=== PATIENT | female | born 1970 | race Caucasian/White ===

== ENCOUNTER 2021-08-21 15:59 | Outpatient (CLI) | payer BC, SELFPAY ==
--- NOTE | ~2021-08-21 | XR_ITS ---
EXAMINATION: XR abdomen/kub 1V DATE: 08/21/2021 16:18 INDICATION: Calculus of ureter. TECHNIQUE: A supine view of the abdomen on 2 radiographs was obtained. COMPARISON: CT abdomen and pelvis 01/26/2019 FINDINGS: There are no dilated loops of bowel. There is a 2.5 cm stone in right kidney. There is a ga llstone in the gallbladder. IMPRESSION: 1. Right kidney stone. 2. Cholelithiasis. Reviewed, dictated and finalized at location A.
== END 2021-08-21 16:00 | disposition home or self-care (01) ==
LOC: ANHOBOP 16:04 → ANHIMG 16:08
PROVIDERS: PCP Internal Medicine; Visit Provider Urology
DX: N20.0 Calculus of kidney (principal); K80.20 Calculus of gallbladder without cholecystitis without obstruction
CPT/HCPCS: 74018

== ENCOUNTER 2021-08-22 15:37 | Outpatient (CLI) | payer BC, SELFPAY ==
--- NOTE | ~2021-08-22 | CT_ITS ---
EXAMINATION: CT abdomen pelvis wo con EXAM DATE: 08/22/2021 15:58 INDICATION: Kidney stone. TECHNIQUE: Spiral CT of the abdomen and pelvis was performed without contrast. Axial, coronal and sag ittal images were reviewed. The dose-length product (DLP) for this examination was 1305.71 mGy-cm. The exposure was tailored according to patient size (auto mA exposure control), and iterative reconst ruction (ASIR) was used as additional dose reduction technique. Comparison is made to prior examinati on from 01/26/2019. FINDINGS: There is a punctate 2 mm stone in the right ureterovesicular junction with mild hydroureter onephrosis. There are multiple much larger right calyceal stones with moderate amount of perinephric fat stranding, inflammation. No left nephrolithiasis. The uterus is not identified and has likely bee n surgically resected. The bladder is unremarkable. The liver, spleen, adrenal glands and pancreas are unremarkable. Approximately 1 cm calcified gallstone. There is no retroperitoneal or pelvic lym phadenopathy. The appendix is normal. There is mild scattered colonic diverticulosis. There is no adjacent inflamm atory change to suggest diverticulitis. The stomach and small bowel are unremarkable. There is expec shasha amount of colonic stool. No free intraperitoneal gas. The heart is normal in size. There are no pericardial or pleural effusions. The lung bases are unremarkable. There are no osteoblastic or osteolytic lesions identified. IMPRESSION: 1. Right UVJ 2 mm stone, mild hydroureteronephrosis. 2. Large right nephrolithiasis with moderate peripelvic fat stranding. 3. Mild colonic diverticulosis. 4. Cholelithiasis. Reviewed, dictated and finalized at location A.
== END 2021-08-22 15:38 | disposition home or self-care (01) ==
PROVIDERS: PCP Internal Medicine; Visit Provider Urology
DX: N20.0 Calculus of kidney (principal); N13.30 Unspecified hydronephrosis; K57.90 Diverticulosis of intestine, part unspecified, without perforation or abscess without bleeding; K80.20 Calculus of gallbladder without cholecystitis without obstruction
CPT/HCPCS: 74176

== ENCOUNTER 2021-08-25 07:57 | Outpatient (CLI) | payer BC, SELFPAY ==
[2021-08-25 08:34] LABS: Anion Gap 9 mmol/L (8-16); Blood Urea Nitrogen 14 mg/dL (7-17); Calcium 8.7 mg/dL (8.4-10.2); Carbon Dioxide 23 mmol/L (22-30); Chloride 106 mmol/L (98-107); Estimated Glomerular Filt Rate > 60; Glucose 262 mg/dL (65-110); Potassium 4.3 mmol/L (3.4-5.0); Sodium 138 mmol/L (137-145)
[2021-08-25 08:37] LABS: Prothrombin Time 13.1 Seconds (11.1-14.7)
[2021-08-25 08:38] LABS: Partial Thromboplastin Time 27.4 SECONDS (22.3-36.8)
== END 2021-08-25 07:58 | disposition home or self-care (01) ==
LOC: ANHSURGERY 08:00
PROVIDERS: Anesthesiology; PCP Internal Medicine; Visit Provider Urology
DX: Z01.812 Encounter for preprocedural laboratory examination (principal); N20.0 Calculus of kidney; E11.9 Type 2 diabetes mellitus without complications; Z51.81 Encounter for therapeutic drug level monitoring; Z79.899 Other long term (current) drug therapy
CPT/HCPCS: 36415; 80048; 85610; 85730; 87077; 87086; 87088

== ENCOUNTER 2021-09-01 04:23 | Day surgery (SDC) | payer BC, SELFPAY ==
[2021-08-24 14:30] VITALS: BMI 43.0
--- NOTE | 2021-08-24 14:59 | PC.NURSE ---
Report to the Outpatient Waiting Room, entrance under the green pavilion located off [facility], at time 7:30 on date 09/01/21. OR Time: 9:30. - You and your visitor will be asked a series of questions to screen for COVID 19 for your protection. - A mask is required within the hospital. One visitor will be allowed to accompany the patient into the hospital. Patients visitor will be instructed to remain with patient at all times or leave the building. We will allow the visitor to come back to the postoperative area when patient is ready. Preoperative COVID Testing Requirements: No COVID Test needed if: (proof is required; if not received patient will have Rapid Test prior to entry) - Patient has received COVID Vaccine at least 14 days prior to procedure date or - Patient has positive COVID test result within last 90 days of surgery date. COVID Test needed if above criteria is not met Patients may have clear liquids (water, carbonated beverages, clear teas, apple juice) until 3 hours prior to surgery (6:30) with a maximum of 20 ounces. - No food from midnight until time of surgery Take the following medications with a SIP of water the morning of surgery: LEVOTHYROXINE, METOPROLOL, ESCITALOPRAM Medications to discontinue per physician: ASPIRIN Date to take last dose: PER DR. CEJA Please no make-up, nail maldivian, hairspray, perfume, deodorant, or body powder the day of surgery. No jewelry (including any body piercings) or valuables the day of surgery, leave them at home. Please take a shower or bath the night before, or the morning of, surgery with an antibacterial soap. Wear comfortable, loose fitting clothing. - Jewelry must be removed prior to entering the operating room. Rings and piercings that are not removed may be cut off. - The hospital will not accept responsibility for valuables. - Please leave all valuables, including medications, at home the day of surgery. If you are going home after surgery, a licensed tram driver must drive you home. - NO public transportation without another adult. - We recommend that an adult stay with you for 24 hours following discharge. - We also recommend that you do not drive, make important decision, drink alcoholic beverages, or take any drugs that were not prescribed by your health care provider for at least 24 hours after your discharge time. Follow any additional instructions given to you from your surgeon. Telephone instructions given to ERIKA ADAMS and asked if any additional questions and then verbalized understanding. Patient advised to call surgeon office or pre surgery nurse liaison [phone] if any additional questions.
[2021-09-01] VITALS (8 sets, daily range): BP systolic 112–132; BP diastolic 65–83; PULSE 66–81; RESP 14–20; TEMP 36.4–36.9; O2SAT 94–99
--- NOTE | ~2021-09-01 | XR_ITS ---
EXAMINATION: XR abdomen/kub 1V INDICATION: Calculus of the kidney TECHNIQUE: Supine views of the abdomen were obtained on 2 radiographs. COMPARISON: CT, 08/22/2021 FINDINGS: A gallstone is noted in the right upper quadrant. There is a 2.2 cm stone of the right kidn ey upper pole. A 9 mm stone projects in the right renal pelvis. No additional stones measuring 10 mm and 7 mm project in the left kidney lower pole. The bowel gas pattern is normal. 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 IMPRESSION: 1. Right nephrolithiasis and likely stone in the right renal pelvis. Reviewed, dictated and finalized at location A.
--- NOTE | 2021-09-01 06:10 | ECG_ITS ---
Measurements Intervals [place] Rate: 72 P: 55 AK: 195 QRS: -12 QRSD: 92 T: 1 QT: 403 QTc: 442 Interpretive Statements SINUS RHYTHM NONSPECIFIC T-WAVE ABNORMALITY ABNORMAL ECG COMPARED TO ECG 01/28/2019 08:44:17 NO SIGNIFICANT CHANGES Electronically Signed On 09-01-2021 15:47:45 CDT by Venkat Finn M.D.
--- NOTE | 2021-09-01 06:25 | WPDHPUPDATE1 ---
History and Physical Update Update Date/Time: 09/01/21 06:25 History and Physical has been reviewed, including an updated exam of the patient. There are NO changes in the patient's condition. Risks, benefits, and alternatives have been discussed and questions answered. Patient agrees to proceed with procedure.
--- NOTE | 2021-09-01 06:56 | WPDANESEPPF ---
Anes - Initial Pre Proc Eval Procedure: Operation Date: 09/01/21 09:30 Proposed Procedures p Right Extracorporeal Shock Wave Lithotripsy - Kingsley Dixon MD s Cystoscopy, Right Ureteroscopy with Right Stone Extraction, Right Stent Placement - Kingsley Dixon MD Date/Time: 09/01/21 06:56 Surgeon: Kingsley Dixon MD Pre Op Diagnosis: Rt Renal and Ureteral Stones Patient Data Age: 51 Gender: F Height: 1.7 m Weight: 124.74 kg Allergies Allergy/AdvReac Type Severity Reaction Status Date / Time No Known Allergies Allergy Verified 09/01/21 08:04 Home Medications Medication Instructions Recorded Confirmed Type atorvastatin 40 mg PO DAILY 08/24/21 08/24/21 History escitalopram oxalate 20 mg PO DAILY 08/24/21 08/24/21 History glipizide 10 mg PO BID 08/24/21 08/24/21 History hydrocodone-acetaminophen 1 tablet PO Q6H PRN 08/24/21 08/24/21 History isosorbide mononitrate 30 mg PO DAILY 08/24/21 08/24/21 History levothyroxine [Euthyrox] 300 mcg PO DAILY 08/24/21 08/24/21 History lisinopril 10 mg PO DAILY 08/24/21 08/24/21 History metoprolol succinate 25 mg PO DAILY 08/24/21 08/24/21 History ondansetron 8 mg TRANSLINGUAL Q6H PRN 08/24/21 08/24/21 History semaglutide [Ozempic] 0.5 mg SUBCUT WEEKLY 08/24/21 08/24/21 History sulfamethoxazole-trimethoprim 1 tablet PO BID 09/01/21 09/01/21 History Patient hx anesthesia problems: none Family hx anesthesia problems: none Results Review: All pre-operative results and documents have been reviewed as part of the pre-operative evaluation. [facility] Past Medical History Medical History (Updated 09/01/21 @ 06:57 by Husam Acevedo DO) CAD (coronary artery disease) Depression Diabetes type 2, controlled Hyperlipidemia Hypertension Hypothyroidism Surgical History Surgical History (Updated 09/01/21 @ 06:57 by Husam Acevedo DO) History of coronary artery stent placement History of hysterectomy History of tonsillectomy Social History Social History Smoking packs per day: 1 Smoking cigarettes per day: 20.0 Years smoked: 10 Smoking pack-years: 10.00 Smoking status: Former smoker Tobacco type: cigarettes Smoking end date: 05/20/95 Alcohol intake: never Substance use: never Substance use type: does not use Living arrangements: with family Spiritual care concerns: No Anes - Eval Final PreProcedure Day of Procedure 09/01/21 06:56 Patient weight: morbidly obese Heart: regular rate and rhythm Lungs: clear to auscultation and normal air movement Airway: Mallampati scale class II Neurological: alert and oriented Last oral intake: >/= 8 hours ASA classification: III Emergent: no Anesthetic plan: proceed Anesthesia type and monitoring: general LMA and standard monitoring Results Review: All pre-operative results and documents have been reviewed as part of the pre-operative evaluation. Informed Consent: The patient's anesthetic plan and its attendant risks and benefits were discussed with the patient/family/POA. Questions were solicited and answers provided to the satisfaction of the patient/family/POA.
[2021-09-01] MEDS: LACTATED RINGERS 1,000 ML 30 ML IV CONT ×2 (08:15→11:40)
[2021-09-01 08:21] LABS: Glucose Point of Care 197 mg/dl (65-105)
[2021-09-01] MEDS: ceFAZolin 3 GM/D5W 100 ML 100 ML IVPB (09:23)
[2021-09-01] MEDS: LIDOCAINE HCL 2% GEL UROJET 10 ML PKG MUCOUS MEM (09:54)
--- NOTE | 2021-09-01 09:58 | W.PM.PROC2 ---
Procedure Note - Detailed Date of Procedure 09/01/21 Pre-op Diagnosis Rt Renal and Ureteral Stones Post-op Diagnosis Same Procedure Performed Cystoscopy, right retrograde pyelography, right ureteroscopy with stone extraction and right ureteral stent placement. The right ESWL Surgeon Kingsley Dixon MD Anesthesia General Description of Procedure The patient was brought to the operative suite where she is prepped and draped in a routine sterile fashion while in the dorsal lithotomy position after the uneventful induction of a general LMA anesthetic. A 19F rigid cystoscope was placed in the bladder. The patient had no evidence of urethral stricture or bladder neck contracture. The bladder mucosa was endoscopically normal without hyperemia or neoplasm. There was a single, orthotopic ureteral orifice bilaterally. A 0.035 glidewire was advanced into the right renal pelvis under fluoroscopy. The distal ureter was dilated with an 8F/10F ureteral dilator. Ureteroscopy was undertaken with a short, tapered, semi-rigid ureteroscope and a small, 2-3mm right distal ureteral stone was extracted with ease using a 1.9F Escape disposable stone basket. I then did a right retrograde pyelogram to ensure proper positioning of a 4.8 F variable length ureteral stent with proximal coil in the renal pelvis and distal coil in the bladder. She was then repositioned in the supine position on the Dornier lithotripsy table. The focal point of the lithotripter was placed at a 2.5cm upper pole renal calculus. A total of 2500 shocks were delivered at a power setting of 4. There appeared to be good fragmentation of the stone. The patient tolerated the procedure well and was taken to the recovery room in good condition. Drains Yes Packing No Pathology Yes Complications No immediate complications Condition Stable Disposition PACU
[2021-09-01 10:48] LABS: Glucose Point of Care 186 mg/dl (65-105)
[2021-09-01] MEDS: ONDANSETRON INJ 4 MG/2 ML VIAL IV PUSH (11:25)
[2021-09-01] MEDS: SCOPOLAMINE 1.5 MG PATCH TRANSDERM (11:47)
== END 2021-09-01 12:22 | disposition home or self-care (01) ==
PROVIDERS: PCP Internal Medicine; Visit Provider Urology
PROC: (CPT 50590; principal; 2021-09-01 09:30)
PROC: (CPT 52352; 2021-09-01 09:30)
DX: N20.2 Calculus of kidney with calculus of ureter (principal); E03.9 Hypothyroidism, unspecified; I25.10 Atherosclerotic heart disease of native coronary artery without angina pectoris; F32.9 Major depressive disorder, single episode, unspecified; E78.5 Hyperlipidemia, unspecified; I10 Essential (primary) hypertension; Z87.891 Personal history of nicotine dependence; E66.01 Morbid (severe) obesity due to excess calories; Z68.41 Body mass index [BMI] 40.0-44.9, adult; R94.31 Abnormal electrocardiogram [ECG] [EKG]; R10.11 Right upper quadrant pain
CPT/HCPCS: 50590; 52352; 52332; 36415; 74018; 80048; 82365; 82948; 85610; 85730; 87077; 87086; 87088; 88300; 93005; A9270; C1769; C2617; J0690; J2250; J2370; J2405; J2704; J3010; J7120; Q9966

== ENCOUNTER 2021-09-19 08:21 | Outpatient (CLI) | payer BC, SELFPAY ==
--- NOTE | ~2021-09-19 | XR_ITS ---
EXAMINATION: XR abdomen/kub 1V INDICATION: Calculus of the kidney TECHNIQUE: Supine views of the abdomen were obtained on 2 radiographs. COMPARISON: 09/01/2021 FINDINGS: A right internal ureteral stent has been placed in expected position. There appear to be mu ltiple stone fragments in the mid and lower right kidney resulting from interval lithotripsy on the r ight. No definite stone fragments are identified along the right-sided stent. A gallstone is noted in the right upper quadrant. The bowel gas pattern is normal. IMPRESSION: 1. Right internal ureteral stent placement and interval lithotripsy with multiple stone fragments pro jecting in the right mid and lower kidney. Reviewed, dictated and finalized at location A. IMPRESSION: 1. Right internal ureteral stent placement and interval lithotripsy with multip le stone fragments projecting in the right mid and lower kidney.
== END 2021-09-19 08:22 | disposition home or self-care (01) ==
PROVIDERS: PCP Internal Medicine; Visit Provider Urology
DX: N20.0 Calculus of kidney (principal); K80.80 Other cholelithiasis without obstruction
CPT/HCPCS: 74018

== ENCOUNTER 2021-09-22 01:22 | Day surgery (SDC) | payer BC, SELFPAY ==
[2021-09-20 17:35] VITALS: BMI 43.0
--- NOTE | 2021-09-21 09:49 | PC.NURSE ---
Report to the Outpatient Waiting Room, entrance under the green pavilion located off [facility], at time ____1245___ on date ___09/22/21____. OR Time: __1445 . - You and your visitor will be asked a series of questions to screen for COVID 19 for your protection. - Only one visitor is allowed at this time. - The patient visitor is requested to leave or wait in car when not with patient. - A mask is required within the hospital. Patients may have clear liquids (water, carbonated beverages, clear teas, apple juice) until 3 hours prior to surgery with a maximum of 20 ounces. - No food from midnight until time of surgery - Infants may have breast milk until 4 hours before surgery, infant formula 6 hours prior to surgery. - Children will be allowed to drink immediately following surgery. If applicable, please bring a bottle or sippy cup to assist with drinking. Juice, water, soda, and popsicles are readily available. For infants on formula, please bring formula the day of surgery. Pacifiers are allowed. Take the following medications with a SIP of water the morning of surgery: _ESCITALOPRAM, ISOSORBIDE, LEVOTHYROXINE, METOPROLOL _ Medications to discontinue per physician N/A Date to take last dose Please no make-up, nail spanish, hairspray, perfume, deodorant, or body powder the day of surgery. No jewelry (including any body piercings) or valuables the day of surgery, leave them at home. Please take a shower or bath the night before, or the morning of, surgery with an antibacterial soap. Wear comfortable, loose fitting clothing. Children are encouraged to wear pajamas. - Jewelry must be removed prior to entering the operating room. Rings and piercings that are not removed may be cut off. - The hospital will not accept responsibility for valuables. - Please leave all valuables, including medications, at home the day of surgery. If you are going home after surgery, a licensed cart driver must drive you home. - NO public transportation without another adult. - We recommend that an adult stay with you for 24 hours following discharge. - We also recommend that you do not drive, make important decision, drink alcoholic beverages, or take any drugs that were not prescribed by your health care provider for at least 24 hours after your discharge time. For Pediatric surgeries, we recommend two adults accompany the child home (only one inside the building at this time). Follow any additional instructions given to you from your surgeon. If you or anyone in your household have experienced Covid symptoms in the past week, please notify your surgeon or the nurse liaison at the phone number below for possible testing. Telephone instructions given to ___PT and asked if any additional questions and then verbalized understanding. Patient advised to call surgeon office or pre surgery nurse liaison [phone] if any additional questions.
--- NOTE | 2021-09-21 14:14 | WPDANESEPP ---
Anes - Eval Pre Procedure Procedure: Operation Date: 09/22/21 14:45 Proposed Procedures p Right Extracorporeal Shock Wave Lithotripsy - Kingsley Dixon MD Date/Time: 09/21/21 14:14 Pre Op Diagnosis: right kidney stone Patient Data Age: 51 Gender: F Height: 1.7 m Weight: 124.74 kg Allergies Allergy/AdvReac Type Severity Reaction Status Date / Time diphenhydramine AdvReac Other Verified 09/20/21 17:34 [From [facility]] Home Medications Medication Instructions Recorded Confirmed Type Ozempic 0.5 mg SUBCUT WEEKLY 08/24/21 09/21/21 History atorvastatin 40 mg PO DAILY 08/24/21 09/21/21 History escitalopram oxalate 20 mg PO DAILY 08/24/21 09/21/21 History glipizide 10 mg PO BID 08/24/21 09/21/21 History isosorbide mononitrate 30 mg PO DAILY 08/24/21 09/21/21 History levothyroxine [Euthyrox] 300 mcg PO DAILY 08/24/21 09/21/21 History lisinopril 10 mg PO DAILY 08/24/21 09/21/21 History metoprolol succinate 25 mg PO DAILY 08/24/21 09/21/21 History hyoscyamine sulfate 0.125 mg PO Q6H PRN #20 tablet 09/01/21 09/21/21 Rx nitrofurantoin 1 cap BID 09/21/21 09/21/21 History Patient hx anesthesia problems: none Family hx anesthesia problems: none Results Review: All pre-operative results and documents have been reviewed as part of the pre-operative evaluation. [facility] Past Medical History Medical History (Updated 09/01/21 @ 10:04 by Kingsley Dixon MD) CAD (coronary artery disease) Depression Diabetes type 2, controlled Hyperlipidemia Hypertension Hypothyroidism Surgical History Surgical History (Updated 09/01/21 @ 06:57 by Husam Acevedo DO) History of coronary artery stent placement History of hysterectomy History of tonsillectomy Social History Social History Smoking packs per day: 1 Smoking cigarettes per day: 20.0 Years smoked: 10 Smoking pack-years: 10.00 Smoking status: Former smoker Tobacco type: cigarettes Second hand tobacco smoke exposure: No Smoking end date: 05/20/95 Alcohol intake: never Substance use: never Substance use type: does not use Spiritual care concerns: No Exam Day of Procedure 09/21/21 14:14
--- NOTE | ~2021-09-22 | XR_ITS ---
EXAMINATION: XR abdomen/kub 1V INDICATION: Urolithiasis TECHNIQUE: Supine views of the abdomen were obtained on 2 radiographs. COMPARISON: 09/19/2021 FINDINGS: A right internal ureteral stent is in expected position. There are multiple stones projecti ng in the mid and lower right kidney. The largest measures 10 mm. No additional urolithiasis is ident ified. There are phleboliths of the pelvis. The bowel gas pattern is normal. IMPRESSION: 1. Right nephrolithiasis. Reviewed, dictated and finalized at location B. IMPRESSION: 1. Right nephrolithiasis.
--- NOTE | 2021-09-22 06:33 | WPDHPUPDATE1 ---
History and Physical Update Update Date/Time: 09/22/21 06:33 History and Physical has been reviewed, including an updated exam of the patient. There are NO changes in the patient's condition. Risks, benefits, and alternatives have been discussed and questions answered. Patient agrees to proceed with procedure.
[2021-09-22] MEDS: LACTATED RINGERS 1,000 ML 30 ML IV CONT (13:00)
[2021-09-22 13:42] LABS: Appearance Urine Clear (Clear); Bilirubin Urine Negative (Negative); Blood Urine 3+ (Negative); Color Urine Yellow (Yellow); Glucose Urine UA Negative (Negative); Ketones Urine Negative (Negative); Leukocyte Esterase Ur 2+ LEU/UL (Negative); Nitrate Urine Negative (Negative); Protein Urine 2+ mg/dL (Negative); Specific Grav Ur 1.025 (1.001-1.035); Urobilinogen Urine 0.2 mg/dL (<2.0); pH Urine 6.5 (5.0-9.0)
[2021-09-22 13:50] LABS: Bacteria Urine Trace /hpf; Mucus Urine Rare /lpf; RBC Urine >75 /hpf (0-2); Squamous Epithelial Cell Urine Many /hpf (Few); WBC Urine >75 /hpf
--- NOTE | 2021-09-22 13:53 | P.PNAN_ITS ---
Anes - Eval Final PreProcedure Day of Procedure 09/22/21 13:53 Patient weight: morbidly obese Heart: regular rate and rhythm Lungs: clear to auscultation and normal air movement Airway: Mallampati scale class II Neurological: alert and oriented Last oral intake: >/= 8 hours ASA classification: III Emergent: no Anesthetic plan: proceed Anesthesia type and monitoring: general LMA and standard monitoring Results Review: All pre-operative results and documents have been reviewed as part of the pre-operative evaluation. Informed Consent: The patient's anesthetic plan and its attendant risks and bene fits were discussed with the patient/family/POA. Questions were solicited and answers provided to the satisfaction of the patient/family/POA.
[2021-09-22 13:54] LABS: Add Urine Microscopic? YES; INR 1.1; Prothrombin Time 13.9 Seconds (11.1-14.7)
[2021-09-22 13:55] LABS: Partial Thromboplastin Time 29.5 SECONDS (22.3-36.8)
[2021-09-22 14:24] LABS: Glucose Point of Care 164 mg/dl (65-105)
[2021-09-22] MEDS: ceFAZolin 3 GM/D5W 100 ML 100 ML IVPB (14:45)
--- NOTE | 2021-09-22 15:17 | W.PM.PROC2 ---
Procedure Note - Detailed Date of Procedure 09/22/21 Pre-op Diagnosis Right kidney stone Post-op Diagnosis Same Procedure Performed Right ESWL Surgeon Kingsley Dixon MD Anesthesia General Description of Procedure The patient was brought to the operative suite where she was placed in the supine position on the Dornier lithotripsy table. The focal point of the lithotripter was placed at a collection of stones in her right lower pole calyx. A total of 2500 shocks were delivered at a power setting of 4. There appeared to be good fragmentation of the stone. The patient tolerated the procedure well and was taken to the recovery room in good condition. Estimated Blood Loss 0 Drains No Packing No Pathology None sent Complications No immediate complications Condition Stable Disposition PACU
[2021-09-22 15:35] VITALS: BP 113/73; PULSE 82; RESP 22; TEMP 36.4; O2SAT 90
[2021-09-22 15:50] VITALS: BP 139/85; PULSE 78; RESP 22; O2SAT 96
[2021-09-22 16:05] VITALS: BP 134/80; PULSE 77; RESP 16; O2SAT 93
[2021-09-22] MEDS: ONDANSETRON INJ 4 MG/2 ML VIAL IV PUSH (16:08)
[2021-09-22 16:20] VITALS: BP 134/80; PULSE 76; RESP 20; O2SAT 95
[2021-09-22 16:25] VITALS: BP 133/68; PULSE 72; RESP 16
[2021-09-22 16:55] VITALS: BP 128/86; PULSE 78; RESP 16
== END 2021-09-22 17:20 | disposition home or self-care (01) ==
PROVIDERS: Anesthesiology; PCP Internal Medicine; Visit Provider Urology
PROC: (CPT 50590; principal; 2021-09-22 14:45)
DX: N20.0 Calculus of kidney (principal); E03.9 Hypothyroidism, unspecified; I25.10 Atherosclerotic heart disease of native coronary artery without angina pectoris; F32.9 Major depressive disorder, single episode, unspecified; E11.9 Type 2 diabetes mellitus without complications; I10 Essential (primary) hypertension; E78.5 Hyperlipidemia, unspecified; Z87.891 Personal history of nicotine dependence; E66.01 Morbid (severe) obesity due to excess calories; Z68.41 Body mass index [BMI] 40.0-44.9, adult
CPT/HCPCS: 50590; 36415; 74018; 81001; 82948; 85610; 85730; 87086; J0690; J1100; J2250; J2405; J2704; J3010; J7120

== ENCOUNTER 2021-10-06 12:20 | Outpatient (CLI) | payer BC, SELFPAY ==
--- NOTE | ~2021-10-06 | XR_ITS ---
XR abdomen/kub 1V 10/06/2021 12:35 Indication: Renal stone Procedure: KUB Comparison: 09/22/2021 Findings: Bowel gas pattern is nonobstructive. There is a right internal ureteral stent in expected p osition. There are stones in the right lower pole of the right kidney and right renal pelvis. There i s a large gallstone in the right upper abdomen. No acute osseous abnormality. Impression: 1: Right nephrolithiasis. Right internal ureteral stent in expected position. 2: Cholelithiasis. Reviewed, dictated and finalized at location B. Impression: 1: Right nephrolithiasis. Right internal ureteral stent in expected position. 2: Cholelithiasis.
== END 2021-10-06 12:21 | disposition home or self-care (01) ==
PROVIDERS: PCP Internal Medicine; Visit Provider Nurse Practitioner Adult Health
DX: N20.0 Calculus of kidney (principal); K80.20 Calculus of gallbladder without cholecystitis without obstruction
CPT/HCPCS: 74018

== ENCOUNTER 2021-12-23 17:48 | Emergency (ER) | payer BC, SELFPAY ==
[2021-12-23] VITALS (26 sets, daily range): BP systolic 137–169; BP diastolic 86–111; PULSE 78–131; RESP 8–23; TEMP 36.7; O2SAT 92–100
--- NOTE | ~2021-12-23 | CT_ITS ---
EXAMINATION: CTA chest PE protocol DATE: 12/23/2021 22:43 INDICATION: Shortness of breath, tachycardia. TECHNIQUE: Computed tomography angiography (CTA) of the chest was performed with 100 mL Omnipaque-350 intravenous contrast timed to evaluate the pulmonary arteries. Coronal maximum intensity projection 3D-reconstructions were created by the technologist. Automated exposure control and iterative reconst ruction technique were employed. Exam dose: 1010.28 mGy-cm total exam DLP. COMPARISON: 12/23/2021 AP and lateral chest FINDINGS: There is diagnostic contrast enhancement of the pulmonary arteries and no evidence of pulmo nary embolism. No thoracic aortic aneurysm or dissection. Normal heart size. Minimal patchy groundglass density of the lungs, best demonstrated in the lower lobes, which may repr esent mild atelectasis or small airways disease. Small sliding hiatal hernia. Approximately 1.4 cm gallstone. No gallbladder wall thickening or pericholecystic fluid or fat strand ing is noted. Diffuse hepatic steatosis. No bile duct or pancreatic duct dilatation. Normal morphology of the adrenal glands. No suspicious osteolytic or osteoblastic lesions. IMPRESSION: No evidence of pulmonary embolism Minimal groundglass patchy density of the lungs which may be due to atelectasis or small airways dise ase Cholelithia sis Reviewed, dictated and finalized at [facility]. Reviewed, dictated and finalized at location [facility]. IMPRESSION: No evidence of pulmonary embolism Minimal groundglass patchy density of the lungs which may be due to atelectasis or small airways disease Cholelithia sis
--- NOTE | ~2021-12-23 | XR_ITS ---
EXAMINATION: XR chest 2V Exam Date/Time: 12/23/2021 19:00 CDT HISTORY: chest pain,sob,nausea,vomiting. hx htn,cad,heart stent x2yrs Comparison: None available. RESULT: Lines, tubes, and devices: None. Lungs and pleura: Clear. Cardiomediastinal silhouette: Unremarkable. Other: No acute osseous or upper abdominal finding. IMPRESSION: No acute cardiopulmonary process. Reviewed, dictated and finalized at location [facility].
[2021-12-23 18:12] LABS: Basophils Percent Auto 0.3 % (0.2-1.2); Eosinophils Absolute Auto 0.2 K/mm3 (0-0.3); Eosinophils Percent Auto 1.6 % (0-4.4); Hematocrit 54.3 % (37.0-47.0); Hemoglobin 17.8 g/dL (12.0-15.0); Immature Granulocyte Absolute 0.04 K/mm3 (0.00-0.031); Immature Granulocyte Percent A 0.4 % (0-0.5); Lymphocytes Absolute Auto 1.62 K/mm3 (0.9-3.2); Lymphocytes Percent Auto 14.8 % (18.3-44.2); Mean Corpuscular HGB Conc 32.8 g/dl (32-36); Mean Corpuscular Hemoglobin 27.7 pg (26-34); Mean Corpuscular Volume 84.4 fl (80-100); Mean Platelet Volume 10.4 fl (7.4-10.4); Monocytes Absolute Auto 0.9 K/mm3 (0.1-0.6); Monocytes Percent Auto 8.6 % (2.6-8.5); Neutrophils Absolute Auto 8.1 K/mm3 (1.3-6.7); Neutrophils Percent Auto 74.3 % (45.5-73.1); Platelet Count Result 321 k/mm3 (150-375); Red Blood Count 6.43 M/mm3 (4.2-5.4); Red Cell Distribution Width 14.9 % (11.5-14.5); White Blood Count 10.9 K/mm3 (4.5-10.0)
--- NOTE | 2021-12-23 18:13 | ECG_ITS ---
Measurements Intervals [place] Rate: 126 P: 55 [place]: 161 QRS: -51 QRSD: 92 T: 24 QT: 310 QTc: 449 Interpretive Statements SINUS TACHYCARDIA INDETERMINATE AXIS LOW QRS VOLTAGE IN EXTREMITY LEADS [QRS DEFLECTION < 0.5 mV IN LIMB LEADS] COMPARED TO ECG 09/01/2021 08:06:44 HEART RATE INCREASED NO OTHER CHANGE Electronically Signed On 12-24-2021 8:22:53 CDT by Silvino Cordova M.D.
[2021-12-23 18:54] LABS: Alanine Aminotransferase 19 U/L (6-35); Albumin Level 3.6 g/dL (3.5-5.1); Alkaline Phosphatase 114 U/L (38-126); Anion Gap 13 mmol/L (8-16); Aspartate Amino Transferase 18 U/L (14-36); Bilirubin,Total 0.8 mg/dL (0.2-1.3); Blood Urea Nitrogen 17 mg/dL (7-17); Calcium 8.4 mg/dL (8.4-10.2); Carbon Dioxide 17 mmol/L (22-30); Chloride 103 mmol/L (98-107); Estimated CRCL calculation 129 ml/min; Estimated Glomerular Filt Rate > 60; Glucose 323 mg/dL (65-110); Lipase 53 U/L (23-300); Potassium 4.1 mmol/L (3.4-5.0); Sodium 133 mmol/L (137-145)
--- NOTE | 2021-12-23 18:56 | ED.ABDPAIN ---
HPI - Abdominal Pain General Chief Complaint: Abdominal Pain Stated Complaint: abd pain, nausea, vomiting, sob, chest pain Time Seen by Provider: 12/23/21 18:37 History of Present Illness HPI narrative: 51-year-old female with history of coronary artery disease, diabetes, hypertension presents emergency room for evaluation of epigastric pain. Patient states yesterday she began developing epigastric/sternal pain while at rest, states the pain was present for approximately 1 hour and was not provoked. Describes the pain as a pressure/squeezing sensation that will occasionally radiate into her jaws. Patient has a history of stent placed, and states that her presenting symptoms today were similar to when the stent was placed. Patient also reports the pain causes her to become short of breath. States has been nauseated since yesterday with multiple episodes of diarrhea. Also reports prior to arrival she had nonbilious and nonbloody emesis x2. Related Data Home Medications Medication Instructions Recorded Confirmed atorvastatin 40 mg tablet 40 mg PO DAILY 08/24/21 09/21/21 escitalopram oxalate 20 mg tablet 20 mg PO DAILY 08/24/21 09/21/21 glipizide 10 mg tablet 10 mg PO BID 08/24/21 09/21/21 isosorbide mononitrate 30 mg 30 mg PO DAILY 08/24/21 09/21/21 tablet,extended release 24 hr levothyroxine 150 mcg tablet 300 mcg PO DAILY 08/24/21 09/21/21 (Euthyrox) lisinopril 10 mg tablet 10 mg PO DAILY 08/24/21 09/21/21 metoprolol succinate 25 mg 25 mg PO DAILY 08/24/21 09/21/21 tablet,extended release 24 hr semaglutide 0.25 mg or 0.5 mg (2 0.5 mg subcut WEEKLY 08/24/21 09/21/21 mg/1.5 mL) subcutaneous pen injector (Ozempic) nitrofurantoin 1 cap BID 09/21/21 09/21/21 Allergies Allergy/AdvReac Type Severity Reaction Status Date / Time diphenhydramine AdvReac Other Verified 09/20/21 17:34 [From Benadryl] Review of Systems Review of Systems: CONSTITUTIONAL: Denies fever, chills, or sweats. EYES: Denies visual changes, redness, or discharge. ENT: Denies rhinorrhea, congestion, sore throat, or otalgia. CARDIOVASCULAR: Reports chest pain RESPIRATORY: Reports dyspnea GASTROINTESTINAL: Reports epigastric pain, nausea, vomiting and diarrhea GENITOURINARY: Denies dysuria or hematuria. SKIN: Denies rash or itching. MUSCULOSKELETAL: Denies back pain, joint pain, or myalgia. NEUROLOGIC: Denies headache, numbness, dizziness, or weakness. PSYCHIATRIC: Denies anxiety or depression. [facility] Past Medical History Medical History CAD (coronary artery disease) Depression Diabetes type 2, controlled Hyperlipidemia Hypertension Hypothyroidism Surgical History Surgical History History of coronary artery stent placement History of hysterectomy History of tonsillectomy Social History Social History Smoking packs per day: 1 Smoking cigarettes per day: 20.0 Years smoked: 10 Smoking pack-years: 10.00 Smoking status: Former smoker Tobacco type: cigarettes Second hand tobacco smoke exposure: No Smoking end date: 05/20/95 Alcohol intake: never Substance use: never Substance use type: does not use Gender identity (if verbalized by the patient): Female Sexual Orientation (if Verbalized by the Patient): Straight or Heterosexual Spiritual care concerns: No Exam Narrative: GENERAL: Well-appearing, well-nourished, no physical limitations, and in no acute distress. HEAD: Normocephalic, atraumatic. EYES: Conjunctivae normal, PERRLA and EOMI. NECK: Supple. CHEST: Clear to auscultation. No respiratory distress. No wheezes rales or rhonchi. No tenderness. HEART: Regular rate and rhythm. No murmur heard. Normal peripheral pulses. ABDOMEN: Soft, nontender, morbid obesity, normal active bowel sounds. BACK: No CVA tenderness EXTREMITIES: Normal r
[2021-12-23] MEDS: ONDANSETRON INJ 4 MG/2 ML VIAL IV PUSH (19:06)
[2021-12-23] MEDS: SODIUM CHLORIDE 0.9% IV 1,000 ML 999 ML IV CONT ×2 (19:06→19:59)
[2021-12-23] MEDS: PANTOPRAZOLE SODIUM IV 40 MG VIAL IV PUSH (19:06)
[2021-12-23 19:21] LABS: Troponin I < 0.012 ng/mL (0.000-0.034)
[2021-12-23] MEDS: BELLADONNA ALK/PHENOB ELIX 10 ML, MAG HYDROX/ALUMINUM HYD/SIMETH 30 ML, LIDOCAINE HCL 2... PO (21:26)
[2021-12-23 21:31] LABS: Appearance Urine Clear (Clear); Bilirubin Urine 1+ (Negative); Blood Urine Negative (Negative); Color Urine Yellow (Yellow); Glucose Urine UA 2+ mg/dL (Negative); Ketones Urine 3+ mg/dL (Negative); Leukocyte Esterase Ur 1+ LEU/UL (Negative); Nitrate Urine Negative (Negative); Protein Urine Negative (Negative); Specific Grav Ur 1.025 (1.001-1.035); Urobilinogen Urine 0.2 mg/dL (<2.0)
[2021-12-23 21:41] LABS: Bacteria Urine Trace /hpf; Mucus Urine Rare /lpf; Squamous Epithelial Cell Urine Many /hpf (Few)
[2021-12-23 21:43] LABS: Add Urine Microscopic? YES
[2021-12-23 21:47] LABS: Glucose Point of Care 305 mg/dl (65-105)
[2021-12-23 21:51] LABS: Troponin I < 0.012 ng/mL (0.000-0.034)
[2021-12-23] MEDS: INSULIN HUMAN REGULAR (*BKC) 100 UNITS/ML 8 UNITS SUB-Q (22:16)
[2021-12-23 23:26] LABS: Glucose Point of Care 302 mg/dl (65-105)
[2021-12-23] MEDS: methylPREDNISolone SOD SUCC 125 MG VIAL IV PUSH (23:29)
== END 2021-12-23 23:51 | disposition home or self-care (01) ==
PROVIDERS: Emergency Medicine; Emergency Provider Nurse Practitioner Family; PCP Internal Medicine
DX: J18.9 Pneumonia, unspecified organism (principal); R11.0 Nausea; I25.10 Atherosclerotic heart disease of native coronary artery without angina pectoris; I10 Essential (primary) hypertension; E78.5 Hyperlipidemia, unspecified; E11.9 Type 2 diabetes mellitus without complications; E03.9 Hypothyroidism, unspecified; F32.A Depression, unspecified; Z95.5 Presence of coronary angioplasty implant and graft; Z79.84 Long term (current) use of oral hypoglycemic drugs; Z90.710 Acquired absence of both cervix and uterus; Z87.891 Personal history of nicotine dependence; K80.20 Calculus of gallbladder without cholecystitis without obstruction; R00.0 Tachycardia, unspecified
CPT/HCPCS: 36415; 71046; 71275; 80053; 81001; 82948; 83690; 84484; 85025; 87086; 87088; 93005; 96361; 96374; 96375; 99284; A9270; C9113; J1815; J2405; J2930; J7030; Q9967

== ENCOUNTER 2022-01-06 13:58 | Emergency (ER) | payer BC, SELFPAY ==
--- NOTE | ~2022-01-06 | XR_ITS ---
EXAM: XR knee RT min 4V DATE: 01/06/2022 14:50 HISTORY: right knee pain and swelling for 2 weeks . COMPARISON: None available. FINDINGS: Decreased mineralization. No fracture or dislocation. No lytic or blastic lesion. Joint sp aces are maintained. No erosion or periosteal change. Possible anterior soft tissue swelling. Linear densities project just beneath the dermis in the anterior soft tissues at the level of the superior m argin of the patella. Large volume joint effusion. IMPRESSION: Vascular calcification versus soft tissue debris in the anterior soft tissues. Large rig ht knee joint effusion. No acute osseous finding. Reviewed, dictated and finalized at location [facility]. IMPRESSION: Vascular calcification versus soft tissue debris in the anterior so ft tissues. Large right knee joint effusion. No acute osseous finding.
[2022-01-06 14:17] VITALS: BP 133/84; PULSE 87; RESP 18; TEMP 36.5; O2SAT 98
--- NOTE | 2022-01-06 14:35 | ED.EXTPRO ---
HPI - Extremity Problem General Chief complaint: Extremity Injury, Lower Stated complaint: knee pain and swelling Time Seen by Provider: 01/06/22 14:35 Source: patient and RN notes reviewed Mode of arrival: ambulatory Limitations: no limitations History of Present Illness HPI Narrative: 51-year-old female presents to the [facility] with complaints of 2 weeks of right knee pain. States she has had a history of a meniscus repair knee. States it feels like a very sharp pain but also that there is water in her knee. Requesting to have her knee drained. States she has had to have that done by her orthopedic from [place]. Had not followed up with them yet. Related Data Home Medications Medication Instructions Recorded Confirmed atorvastatin 40 mg tablet 40 mg PO DAILY 08/24/21 09/21/21 escitalopram oxalate 20 mg tablet 20 mg PO DAILY 08/24/21 09/21/21 glipizide 10 mg tablet 10 mg PO BID 08/24/21 09/21/21 isosorbide mononitrate 30 mg 30 mg PO DAILY 08/24/21 09/21/21 tablet,extended release 24 hr levothyroxine 150 mcg tablet 300 mcg PO DAILY 08/24/21 09/21/21 (Euthyrox) lisinopril 10 mg tablet 10 mg PO DAILY 08/24/21 09/21/21 metoprolol succinate 25 mg 25 mg PO DAILY 08/24/21 09/21/21 tablet,extended release 24 hr semaglutide 0.25 mg or 0.5 mg (2 0.5 mg subcut WEEKLY 08/24/21 09/21/21 mg/1.5 mL) subcutaneous pen injector (Ozempic) Allergies Allergy/AdvReac Type Severity Reaction Status Date / Time diphenhydramine AdvReac Other Verified 01/06/22 14:39 [From Bensulaiman] Review of Systems Review of Systems: All systems reviewed & are unremarkable except as noted in HPI and below Constitutional: Constitutional: Reports no additional constitutional complaints, Denies chills and Denies fever(s) Eyes: Eyes: Reports no additional eye complaints ENT: Reports system reviewed and no additional complaints, except as documented Cardiovascular: Cardiovascular: Reports no additional cardiovascular complaints Respiratory: Respiratory: Reports no additional respiratory complaints Gastrointestinal: Gastrointestinal: Reports no additional gastrointestinal complaints Musculoskeletal: Musculoskeletal: Reports as per HPI, Reports arthralgias (right knee) and Reports joint swelling (riight knee) Integumentary/Breasts: Skin/Breast: Reports system reviewed and no additional complaints, except as docu Neurologic: Reports system reviewed and no additional complaints, except as documented Psychiatric: Psychiatric: Reports no additional psychiatric complaints Allergic/Immunologic: Allergic/Immunologic: Reports no additional allergic/immunologic complaints PMF Past Medical History Medical History (Updated 01/07/22 @ 00:01 by Lourdes Topete) CAD (coronary artery disease) Depression Diabetes type 2, controlled Hyperlipidemia Hypertension Hypothyroidism Surgical History Surgical History (Updated 01/08/22 @ 10:21 by Loni Pavon APRN) H/O lateral meniscus repair of right knee History of coronary artery stent placement History of hysterectomy History of tonsillectomy Social History Social History Smoking packs per day: 1 Smoking cigarettes per day: 20.0 Years smoked: 10 Smoking pack-years: 10.00 Smoking status: Former smoker Tobacco type: cigarettes Second hand tobacco smoke exposure: No Smoking end date: 05/20/95 Alcohol intake: never Substance use: never Substance use type: does not use Gender identity (if verbalized by the patient): Female Sexual Orientation (if Verbalized by the Patient): Straight or Heterosexual Spiritual care concerns: No Comments At the time of my signature, I reviewed and agree with the nursing past medical, surgical, social, and family history. There is no relevant family history pertinent to the patient complaint. Exam Const: General: healthy appearing, no acute distress and alert Nut
== END 2022-01-06 15:23 | disposition home or self-care (01) ==
PROVIDERS: Emergency Provider Nurse Practitioner
DX: M25.461 Effusion, right knee (principal); I25.10 Atherosclerotic heart disease of native coronary artery without angina pectoris; E11.9 Type 2 diabetes mellitus without complications; E78.5 Hyperlipidemia, unspecified; I10 Essential (primary) hypertension; E03.9 Hypothyroidism, unspecified; Z95.5 Presence of coronary angioplasty implant and graft; F32.A Depression, unspecified; Z87.891 Personal history of nicotine dependence
CPT/HCPCS: 73564; 99213; G0463

== ENCOUNTER → 2023-04-02 15:10 | Outpatient (CLI) | payer OTHER, SELFPAY ==
--- NOTE | ~2023-04-02 | XR_ITS ---
Supine and upright views of the abdomen Clinical history: Abdominal pain Findings: Bowel gas pattern is nonspecific. No evidence for obstruction or free air. Presumed calcifi ed right upper quadrant gallstone present. Tiny right lower pole renal stone present. Osseous structu res are intact. Impression: Cholelithiasis. Tiny right lower pole renal stone. Reviewed, dictated and finalized at location . 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 Tiny right lower pole renal stone.
== END ==
PROVIDERS: PCP Urology; Visit Provider Urology
DX: N20.0 Calculus of kidney (principal)
CPT/HCPCS: 74018

== ENCOUNTER 2023-06-28 21:27 | Emergency (ER) | payer SELFPAY | END 2023-06-28 22:15 | disposition left against medical advice (07) | PROVIDERS: PCP Urology | DX: Z53.21 Procedure and treatment not carried out due to patient leaving prior to being seen by health care provider (principal) | CPT/HCPCS: 99199 ==

== ENCOUNTER → 2023-07-01 16:44 | Outpatient (CLI) | payer OTHER, SELFPAY ==
--- NOTE | ~2023-07-01 | XR_ITS ---
Cervical Spine: AP, lateral, open-mouth views Clinical History: Pain Findings: The normal lordotic curve is maintained. There is straightening of the normal cervical lord osis. No fracture or sublocation seen. There is moderate to advanced degenerative disc narrowing at C 5-C6 and C6-C7. Pre-vertebral soft tissues are unremarkable. Impression: Degenerative disc narrowing at the lower cervical spine, as detailed above. Reviewed, dictated and finalized at location . 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
== END ==
PROVIDERS: PCP Chiropractor; Visit Provider Chiropractor
DX: M50.323 Other cervical disc degeneration at C6-C7 level (principal)
CPT/HCPCS: 72050

== ENCOUNTER 2023-12-14 19:11 | Observation (INO) | payer OTHER, SELFPAY ==
--- NOTE | ~2023-12-14 | XR_ITS ---
XR chest 2V Ordering provider: Diana Monterroso MD History: 53 years Female with . chest pressure . Comparison: December 23, 2021 FINDINGS: MEDIASTINUM: The cardiac silhouette is not enlarged. LUNGS: No infiltrates, effusions or pneumothorax. Slightly prominent bronchovascular markings in the lower lobes. OTHER: No free air under the diaphragm. Degenerative changes of the spine. IMPRESSION: No acute cardiopulmonary pathology. Reviewed, dictated and finalized at location [facility].
--- NOTE | 2023-12-14 19:13 | ECG_ITS ---
Test Date: 2023-12-14 19:24:16 Measurements Intervals [place] Rate: 80 P: 52 [place]: 209 QRS: -15 QRSD: 92 T: 22 QT: 352 QTc: 407 Interpretive Statements SINUS RHYTHM WITH FIRST DEGREE AV BLOCK DELAYED PRECORDIAL R/S TRANSITION BASELINE ARTIFACT- I, II, III, AVL, AVF BORDERLINE ECG No previous ECG available for comparison Electronically Signed On 12-14-2023 19:29:35 CDT by Joe Norwood D.O.
[2023-12-14 19:17] VITALS: BP 156/86; PULSE 89; RESP 12; O2SAT 100
[2023-12-14 19:27] VITALS: PULSE 92
[2023-12-14 19:28] VITALS: O2SAT 99
[2023-12-14 19:29] VITALS: O2SAT 99
[2023-12-14 19:34] LABS: Basophils Absolute Auto 0.1 K/mm3 (0.0-0.1); Basophils Percent Auto 1.1 % (0.2-1.2); Eosinophils Absolute Auto 0.3 K/mm3 (0-0.3); Eosinophils Percent Auto 2.8 % (0-4.4); Hematocrit 44.8 % (37.0-47.0); Hemoglobin 15.1 g/dL (12.0-15.0); Immature Granulocyte Absolute 0.04 K/mm3 (0.00-0.031); Immature Granulocyte Percent A 0.4 % (0-0.5); Lymphocytes Absolute Auto 2.71 K/mm3 (0.9-3.2); Lymphocytes Percent Auto 28.5 % (18.3-44.2); Mean Corpuscular HGB Conc 33.7 g/dl (32-36); Mean Corpuscular Hemoglobin 29.2 pg (26-34); Mean Corpuscular Volume 86.7 fl (80-100); Mean Platelet Volume 10.1 fl (7.4-10.4); Monocytes Absolute Auto 0.9 K/mm3 (0.1-0.6); Monocytes Percent Auto 8.9 % (2.6-8.5); Neutrophils Absolute Auto 5.5 K/mm3 (1.3-6.7); Neutrophils Percent Auto 58.3 % (45.5-73.1); Platelet Count Result 298 k/mm3 (150-375); Red Blood Count 5.17 M/mm3 (4.2-5.4); White Blood Count 9.5 K/mm3 (4.5-10.0)
[2023-12-14 19:45] LABS: Alanine Aminotransferase 19 U/L (6-35); Albumin Level 4.1 g/dL (3.5-5.1); Alkaline Phosphatase 127 U/L (38-126); Anion Gap 10 mmol/L (4-12); Aspartate Amino Transferase 20 U/L (14-36); Bilirubin,Total 0.3 mg/dL (0.2-1.3); Blood Urea Nitrogen 18 mg/dL (7-17); Calcium 9.7 mg/dL (8.4-10.2); Carbon Dioxide 26 mmol/L (22-30); Chloride 100 mmol/L (98-107); Estimated CRCL calculation 149 ml/min; Estimated Glomerular Filt Rate > 60; Glucose 203 mg/dL (65-110); Lipase 97 U/L (23-300); Potassium 3.8 mmol/L (3.4-5.0); Sodium 136 mmol/L (137-145)
[2023-12-14 19:47] LABS: Partial Thromboplastin Time 26.2 Seconds (22.3-36.8)
[2023-12-14 19:57] LABS: Troponin I < 0.012 ng/mL (0.000-0.034)
--- NOTE | 2023-12-14 20:10 | ED.CHESTPAIN ---
HPI - Chest Pain General Chief Complaint: Chest Pain <Bulmaro Valera APRN - Last Filed: 12/15/23 01:15> Stated Complaint: chest pressure <Bulmaro Valera APRN - Last Filed: 12/15/23 01:15> Time Seen by Provider: 12/14/23 19:40 <Bulmaro Valera APRN - Last Filed: 12/15/23 01:15> Source: patient <Bulmaro Valera APRN - Last Filed: 12/15/23 01:15> Mode of arrival: ambulatory <Bulmaro Valera APRN - Last Filed: 12/15/23 01:15> Limitations: no limitations <Bulmaro Valera APRN - Last Filed: 12/15/23 01:15> History of Present Illness HPI narrative: Carlene is a 53-year-old female patient presenting to the ER today with complaints midsternal chest pain and pressure. She reports this has been going on for the last 3 days. Took nitro today and yesterday and this helped alleviate her symptoms. States the pressure can increase with exertion. Also noted some left foot swelling. Just started glipizide 1 month ago. Does take a daily baby aspirin. History of cardiac stent 3 years ago. Reports that she stop taking statins and her blood thinner 2 years ago because it was causing a lot of body aches and she felt as though she did not need it. <Bulmaro Valera APRN - Last Filed: 12/15/23 01:15> Related Data Home Medications: Home Medications Medication Instructions Recorded Confirmed escitalopram oxalate 20 mg tablet 20 mg PO DAILY 08/24/21 12/15/23 glipizide 10 mg tablet 10 mg PO BIDWM 08/24/21 12/15/23 aspirin 81 mg tablet,delayed 81 mg PO DAILY 12/15/23 12/15/23 release capsicum (cayenne) 450 mg capsule 400 mg PO DAILY 12/15/23 12/15/23 furosemide 20 mg tablet 20 mg PO BID 12/15/23 12/15/23 levothyroxine 200 mcg tablet 200 mcg PO DAILY 12/15/23 12/15/23 lisinopril 20 mg tablet 10 mg PO DAILY 12/15/23 12/15/23 magnesium 500 mg tablet 500 mg PO HS 12/15/23 12/15/23 nitroglycerin 0.4 mg sublingual 0.4 mg sublingual PRN PRN Chest 12/15/23 12/15/23 tablet Pain omega-3 fatty acids-vitamin E 1 cap PO DAILY 12/15/23 12/15/23 1,000 mg capsule vitamin D3 125 mcg (5,000 1 cap PO DAILY 12/15/23 12/15/23 unit)-vitamin K2 90 mcg capsule <Bulmaro Valera APRN - Last Filed: 12/15/23 01:15> Allergies/Adverse Reactions: Allergies Allergy/AdvReac Type Severity Reaction Status Date / Time [id number] Reductase AdvReac Unknown Muscle Pain Verified 12/15/23 02:19 Inhibitor diphenhydramine AdvReac Other Verified 12/14/23 19:22 [From Benadryl] <Bulmaro Valera APRN - Last Filed: 12/15/23 01:15> Review of Systems Review of Systems: Pertinent positives per HPI. Patient denies any fever, chills, rash, headache, visual changes, dizziness, cough, runny nose, sore throat, shortness of breath, palpitations, nausea, vomiting, diarrhea, constipation, abdominal pain, or any urinary issues. <Bulmaro Valera APRN - Last Filed: 12/15/23 01:15> [facility] Past Medical History Medical History: Medical History (Updated 12/15/23 @ 02:27 by Gume Guevara MD) CAD (coronary artery disease) Depression Diabetes type 2, controlled Hyperlipidemia Hypertension Hypothyroidism <Bulmaro Valera APRN - Last Filed: 12/15/23 01:15> Surgical History Surgical History: Surgical History H/O lateral meniscus repair of right knee History of coronary artery stent placement History of hysterectomy History of tonsillectomy <Bulmaro Valera APRN - Last Filed: 12/15/23 01:15> Family History Family History: Family History (Updated 12/15/23 @ 03:39 by Deysi Cook RN) Mother Parathyroid disease Alcoholic Sibling Hypertension Father Hypertension Cancer tumor removed from leg Malignant neoplasm of prostate <Bulmaro Valera, SUPERVISOR [employer]INTENANCE - Last Filed: 12/15/23 01:15> Social History Social History: Social History (Reviewed 12/14/23 @
[2023-12-14 20:31] LABS: NT Pro B Type Natriuretic Pept 102 pg/mL (19.9-100)
[2023-12-14 20:34] LABS: D Dimer 0.31 ug/mL (<0.48)
[2023-12-14 21:19] VITALS: BP 122/78; PULSE 81; RESP 16; O2SAT 97
--- NOTE | 2023-12-14 21:51 | ECG_ITS ---
Test Date: 2023-12-14 22:10:39 Measurements Intervals [place] Rate: 77 P: 15 [place]: 209 QRS: -21 QRSD: 103 T: 11 QT: 376 QTc: 426 Interpretive Statements SINUS RHYTHM WITH FIRST DEGREE AV BLOCK BORDERLINE R WAVE PROGRESSION, ANTERIOR LEADS BORDERLINE T WAVE ABNORMALITY- INFERIOR LEADS BASELINE WANDER- AVR, AVL, AVF BORDERLINE ECG Compared to ECG 12/14/2023 19:24:16 NO SIGNIFICANT CHANGE Electronically Signed On 12-15-2023 08:01:49 CDT by Joe Norwood D.O.
[2023-12-14 22:41] LABS: Troponin I < 0.012 ng/mL (0.000-0.034)
[2023-12-14 23:36] VITALS: BP 143/78; PULSE 88; RESP 16; O2SAT 99
[2023-12-15] VITALS (15 sets, daily range): BP systolic 114–150; BP diastolic 51–89; PULSE 73–91; RESP 14–18; TEMP 36.2–36.9; O2SAT 96–100; BMI 44.3
--- NOTE | 2023-12-15 01:01 | PM.IMHP ---
H&P: HPI History of Present Illness Date/Time: 12/15/23 01:01 Chief Complaint: chest pain Narrative: This is a 53-year-old female with past medical history significant for obesity, HTN, Hypothyroidism, T2DM.Patient presents to ED due to chest pain for the last 3 days took a nitro that made it go away, denies n/v/d/abdominal pain, no dizziness, no sob, no cough, no leg swelling, has a lot of stress at work. Preliminary work up unrevealing. XR chest 2V Ordering provider: Diana Monterroso MD History: 53 years Female with . chest pressure . Comparison: December 23, 2021 FINDINGS: MEDIASTINUM: The cardiac silhouette is not enlarged. LUNGS: No infiltrates, effusions or pneumothorax. Slightly prominent bronchovascular markings in the lower lobes. OTHER: No free air under the diaphragm. Degenerative changes of the spine. IMPRESSION: No acute cardiopulmonary pathology. Review of Systems Review of Systems: chest pain PMFSH Past Medical History Medical History (Updated 12/15/23 @ 02:27 by Gume Guevara MD) CAD (coronary artery disease) Depression Diabetes type 2, controlled Hyperlipidemia Hypertension Hypothyroidism Surgical History Surgical History H/O lateral meniscus repair of right knee History of coronary artery stent placement History of hysterectomy History of tonsillectomy Family History Family History (Updated 12/15/23 @ 03:39 by Deysi Cook RN) Mother Parathyroid disease Alcoholic Sibling Hypertension Father Hypertension Cancer tumor removed from leg Malignant neoplasm of prostate Social History Social History Smoking packs per day: 1 Smoking cigarettes per day: 20.0 Years smoked: 10 Smoking pack-years: 10.00 Smoking status: Former smoker Tobacco type: cigarettes Second hand tobacco smoke exposure: No Smoking end date: 05/20/95 Alcohol intake: never Substance use: never Substance use type: does not use Do You Feel Safe in your Home?: Yes Lack of Transportation: No Lack of Food: Never True Current Housing: I Have Housing Concerned About Future Housing: No Difficulty Paying Gas/Electric Bills: No Difficulty Paying for Meds: No Currently Unemployed: No Education: Decline to Answer Difficulty w/ Childcare or Family Care: No Living arrangements: with family Gender identity (if verbalized by the patient): Female Sexual Orientation (if Verbalized by the Patient): Straight or Heterosexual Spiritual care concerns: No Meds Home Medications and Allergies Home Medications Medication Instructions Recorded Confirmed Type escitalopram oxalate 20 mg tablet 20 mg PO DAILY 08/24/21 12/15/23 History glipizide 10 mg tablet 10 mg PO BIDWM 08/24/21 12/15/23 History aspirin 81 mg tablet,delayed 81 mg PO DAILY 12/15/23 12/15/23 History release capsicum (cayenne) 450 mg capsule 400 mg PO DAILY 12/15/23 12/15/23 History furosemide 20 mg tablet 20 mg PO BID 12/15/23 12/15/23 History levothyroxine 200 mcg tablet 200 mcg PO DAILY 12/15/23 12/15/23 History lisinopril 20 mg tablet 10 mg PO DAILY 12/15/23 12/15/23 History magnesium 500 mg tablet 500 mg PO HS 12/15/23 12/15/23 History nitroglycerin 0.4 mg sublingual 0.4 mg sublingual PRN PRN Chest 12/15/23 12/15/23 History tablet Pain omega-3 fatty acids-vitamin E 1 cap PO DAILY 12/15/23 12/15/23 History 1,000 mg capsule vitamin D3 125 mcg (5,000 1 cap PO DAILY 12/15/23 12/15/23 History unit)-vitamin K2 90 mcg capsule Allergies Allergy/AdvReac Type Severity Reaction Status Date / Time [id number] Reductase AdvReac Unknown Muscle Pain Verified 12/15/23 02:19 Inhibitor diphenhydramine AdvReac Other Verified 12/14/23 19:22 [From Benadryl] Vital Signs Vital Signs - 24 hr 12/14/23 19:17 12/14/23 19:
--- NOTE | 2023-12-15 01:06 | ECG_ITS ---
Test Date: 2023-12-15 01:24:04 Measurements Intervals [place] Rate: 77 P: 67 [place]: 207 QRS: 2 QRSD: 105 T: 57 QT: 397 QTc: 451 Interpretive Statements SINUS RHYTHM Compared to ECG 12/14/2023 22:10:39 No significant changes NORMAL ECG Electronically Signed On 12-15-2023 08:01:57 CDT by Joe Norwood D.O.
[2023-12-15 01:46] LABS: Troponin I < 0.012 ng/mL (0.000-0.034)
[2023-12-15 05:02] LABS: Cholesterol 156 mg/dL (0-200); HDL Direct 45 mg/dL; Triglycerides 150 mg/dL (<150)
[2023-12-15 05:12] LABS: LDL Cholesterol Direct 93 mg/dL
--- NOTE | 2023-12-15 06:10 | ADMGEN ---
This patient, Carlene Guthrie, was admitted to IMU Room 200-01 at 0203. Patient/family oriented to hospital policies and general routines including ID bracelet, bed and alarms, visiting hours, pain management, procedures, bathroom and other care routines, personal items, smoking policy, room service/diet, and visiting hours. Information on how to activate the Rapid Response Team has been discussed. Patient/Family are encouraged to report perceived risks to care and to ask questions if they do not understand what they are told or what they should do.
[2023-12-15] MEDS: LEVOTHYROXINE SODIUM 100 MCG TABLET 200 MCG PO (06:47)
[2023-12-15 06:54] LABS: Glucose Point of Care 272 mg/dl (65-105)
[2023-12-15] MEDS: ASPIRIN 81 MG ENTERIC TABLET PO (08:29)
[2023-12-15] MEDS: lisinopriL 10 MG TABLET PO (08:29)
--- NOTE | 2023-12-15 09:58 | PM.IMPN ---
Progress Note: A&P Assessment and Plan (1) Chest pain: Qualifiers: Chest pain type: unspecified Qualified Code(s): R07.9 - Chest pain, unspecified Code(s): R07.9 - Chest pain, unspecified Status: Acute Assessment and Plan: Unstable angina Patient has a history of CAD status post stent, patient has been having intermittent chest pain since yesterday Serial trops: Negative Follow-up echocardiogram Telemetry monitoring Cardiology consult Supportive care Continue aspirin 81 mg daily p.o., nitroglycerin sublingual p.r.n. (2) Diabetes type 2, controlled: Code(s): E11.9 - Type 2 diabetes mellitus without complications Status: Acute Assessment and Plan: Hold home medication glipizide during hospitalization Start insulin sliding scale a.c. q.h.s. (3) Hypertension: Code(s): I10 - Essential (primary) hypertension Status: Acute Assessment and Plan: Continue lisinopril 20 mg daily p.o. (4) Hypothyroidism: Code(s): E03.9 - Hypothyroidism, unspecified Status: Acute Assessment and Plan: Continue Synthroid 200 mcg daily p.o., (5) Morbid obesity with BMI of 40.0-44.9, adult: Code(s): E66.01 - Morbid (severe) obesity due to excess calories; Z68.41 - Body mass index [BMI] 40.0-44.9, adult Status: Acute Subjective Date/time seen: 12/15/23 09:58 Interval history: I saw examined patient in patient room today. Patient still had intermittent chest pain over the night, pressure-like discomfort, patient denies palpitation, lightheadedness, abdomen pain, nausea vomiting, acid reflux. Exam Narrative: GENERAL: Pleasant, in no acute distress. Well-nourished. - EYES: EOMI. Anicteric. - HENT: Moist mucous membranes. - LUNGS: Clear to auscultation bilaterally, no wheezing, rhonchi, or rales. - CARDIOVASCULAR: Regular rate and rhythm. No murmur. No JVD. - ABDOMEN: Soft, non-tender and non-distended. No palpable masses. - EXTREMITIES: No edema. Peripheral pulses 2+. Non-tender. - NEUROLOGIC: No focal neurological deficits. CN II-XII grossly intact. - PSYCHIATRIC: Awake, Alert and oriented x 3. Appropriate mood and affect. - SKIN: No rashes or lesions. Warm. - LYMPH: No cervical lymphadenopathy. Objective Data Vital Signs Vital Signs: Vital Signs - 24 hr 12/14/23 19:17 12/14/23 19:27 12/14/23 19:28 Temperature Pulse Rate 89 92 Respiratory Rate 12 Blood Pressure 156/86 H Pulse Oximetry 100 99 Oxygen Delivery Room Air Room Air 12/14/23 19:29 12/14/23 21:19 12/14/23 23:36 Temperature Pulse Rate 81 88 Respiratory Rate 16 16 Blood Pressure 122/78 143/78 H Pulse Oximetry 99 97 99 Oxygen Delivery Room Air 12/15/23 00:31 12/15/23 02:09 12/15/23 03:00 Temperature 97.3 F L Pulse Rate 78 82 Respiratory Rate 16 16 Blood Pressure 131/89 126/64 Pulse Oximetry 96 97 Oxygen Delivery Room Air 12/15/23 03:56 12/15/23 02:17 12/15/23 04:00 Temperature 97.8 F Pulse Rate 80 81 91 Respiratory Rate 16 Blood Pressure 118/71 Pulse Oximetry 100 Oxygen Delivery 12/15/23 06:00 12/15/23 07:26 12/15/23 08:00 Temperature 98.0 F Pulse Rate 83 78 86 Respiratory Rate 16 Blood Pressure 133/51 L Pulse Oximetry 97 Oxygen Delivery Intake/Output Intake/Output: Intake & Output 12/12/23 12/13/23 12/14/23 12/15/23 23:59 23:59 23:59 23:59 Intake Total 420 Balance 420 Meds/Results Medications: Active Medications Generic Name Dose Route Start Last Admin Trade Name Freq PRN Reason Stop Dose Admin Acetaminophen 650 mg 12/15/23 09:56 Acetaminophen 325 Mg Tablet PO Q6H PRN Pain Rated 1-3 Aspirin 81 mg 12/15/23 09:00 12/15/23 08:29 Aspirin 81 Mg Enteric Tablet PO 81 mg DAILY CARLY Administration Dextrose 12.5 gm 12/15/23 06:14 Dextrose 50% 25 Gm/50 Ml Syringe IV PUSH PRN PRN Hypoglycemia Protocol Escitalopram Oxalat
[2023-12-15 10:18] LABS: Basophils Absolute Auto 0.1 K/mm3 (0.0-0.1); Basophils Percent Auto 1.3 % (0.2-1.2); Eosinophils Absolute Auto 0.3 K/mm3 (0-0.3); Eosinophils Percent Auto 3.8 % (0-4.4); Hematocrit 43.3 % (37.0-47.0); Hemoglobin 14.1 g/dL (12.0-15.0); Immature Granulocyte Absolute 0.03 K/mm3 (0.00-0.031); Immature Granulocyte Percent A 0.4 % (0-0.5); Lymphocytes Absolute Auto 2.93 K/mm3 (0.9-3.2); Lymphocytes Percent Auto 38.7 % (18.3-44.2); Mean Corpuscular HGB Conc 32.6 g/dl (32-36); Mean Corpuscular Hemoglobin 28.9 pg (26-34); Mean Corpuscular Volume 88.7 fl (80-100); Mean Platelet Volume 10.6 fl (7.4-10.4); Monocytes Absolute Auto 0.6 K/mm3 (0.1-0.6); Monocytes Percent Auto 8.2 % (2.6-8.5); Neutrophils Absolute Auto 3.6 K/mm3 (1.3-6.7); Neutrophils Percent Auto 47.6 % (45.5-73.1); Platelet Count Result 274 k/mm3 (150-375); Red Blood Count 4.88 M/mm3 (4.2-5.4); Red Cell Distribution Width 13.2 % (11.5-14.5); White Blood Count 7.6 K/mm3 (4.5-10.0)
[2023-12-15 10:24] LABS: Anion Gap 12 mmol/L (4-12); Blood Urea Nitrogen 16 mg/dL (7-17); Calcium 8.9 mg/dL (8.4-10.2); Carbon Dioxide 23 mmol/L (22-30); Chloride 100 mmol/L (98-107); Estimated CRCL calculation 150 ml/min; Estimated Glomerular Filt Rate > 60; Glucose 229 mg/dL (65-110); Potassium 3.9 mmol/L (3.4-5.0); Sodium 135 mmol/L (137-145)
[2023-12-15] MEDS: ACETAMINOPHEN 325 MG TABLET 650 MG PO (12:04)
[2023-12-15 12:08] LABS: Glucose Point of Care 300 mg/dl (65-105)
[2023-12-15] MEDS: INSULIN ASPART (*BKC) 100 UNITS/ML SUB-Q ×3 (12:24→21:13)
--- NOTE | 2023-12-15 13:05 | PM.CNCAR ---
Assessment and Plan Assessment and plan (1) Chest pain: Qualifiers: Chest pain type: unspecified Qualified Code(s): R07.9 - Chest pain, unspecified Code(s): R07.9 - Chest pain, unspecified Status: Acute Plan Atypical chest pain with negative cardiac enzymes and no dynamic EKG changes Coronary artery disease with history of PCI to the LAD 3 years ago in outside hospital. Hypertension control Mixed dyslipidemia Chronic diastolic heart failure currently compensated Obesity Depression Diabetes mellitus type 2 Hypothyroidism Plan NPO after midnight for a Lexiscan stress test in the morning Continue aspirin 81 mg daily Continue Lasix 20 mg p.o. b.i.d. Continue lisinopril History of Present Illness History of Present Illness Consult date/time: 12/15/23 13:05 Reason For Visit: Chest Pain Narrative: 53-year-old female patient presents to the hospital with acute episode of chest pain. Chest pain is pressure-like moderate in severity that started 3 days ago. Chest pain has been intermittent. It is retrosternal nonradiating. There were no precipitating factors but chest pain improved with nitroglycerin. Take history of coronary artery disease prior PCI to the LAD 3 days ago in [facility] hospital. This morning she had episode of chest pain that lasted for several hours. Review of Systems Review of Systems: All systems reviewed & are unremarkable except as noted in HPI and below PMFSH Past Medical History Medical History (Updated 12/15/23 @ 02:27 by Gume Guevara MD) CAD (coronary artery disease) Depression Diabetes type 2, controlled Hyperlipidemia Hypertension Hypothyroidism Surgical History Surgical History H/O lateral meniscus repair of right knee History of coronary artery stent placement History of hysterectomy History of tonsillectomy Family History Family History (Updated 12/15/23 @ 03:39 by Deysi Cook RN) Mother Parathyroid disease Alcoholic Sibling Hypertension Father Hypertension Cancer tumor removed from leg Malignant neoplasm of prostate Social History Social History Smoking packs per day: 1 Smoking cigarettes per day: 20.0 Years smoked: 10 Smoking pack-years: 10.00 Smoking status: Former smoker Tobacco type: cigarettes Second hand tobacco smoke exposure: No Smoking end date: 05/20/95 Alcohol intake: never Substance use: never Substance use type: does not use Do You Feel Safe in your Home?: Yes Lack of Transportation: No Lack of Food: Never True Current Housing: I Have Housing Concerned About Future Housing: No Difficulty Paying Gas/Electric Bills: No Difficulty Paying for Meds: No Currently Unemployed: No Education: Decline to Answer Difficulty w/ Childcare or Family Care: No Living arrangements: with family Gender identity (if verbalized by the patient): Female Sexual Orientation (if Verbalized by the Patient): Straight or Heterosexual Spiritual care concerns: No Meds Home Medications and Allergies Home Medications Medication Instructions Recorded Confirmed Type escitalopram oxalate 20 mg tablet 20 mg PO DAILY 08/24/21 12/15/23 History glipizide 10 mg tablet 10 mg PO BIDWM 08/24/21 12/15/23 History aspirin 81 mg tablet,delayed 81 mg PO DAILY 12/15/23 12/15/23 History release capsicum (cayenne) 450 mg capsule 400 mg PO DAILY 12/15/23 12/15/23 History furosemide 20 mg tablet 20 mg PO BID 12/15/23 12/15/23 History levothyroxine 200 mcg tablet 200 mcg PO DAILY 12/15/23 12/15/23 History lisinopril 20 mg tablet 10 mg PO DAILY 12/15/23 12/15/23 History magnesium 500 mg tablet 500 mg PO HS 12/15/23 12/15/23 History nitroglycerin 0.4 mg sublingual 0.4 mg sublingual PRN PRN Chest 12/15/23 12/15/23 History tablet Pain omega-3 fatty acids-vitamin
[2023-12-15 17:12] LABS: Glucose Point of Care 294 mg/dl (65-105)
[2023-12-15 20:22] LABS: Glucose Point of Care 278 mg/dl (65-105)
--- NOTE | 2023-12-16 | ECHO_ITS ---
Patient Info Name: Carlene Guthrie Age: 53 years : 1970 Gender: Female Ht: 67 in Wt: 280 lbs BSA: 2.52 m2 HR: 69 bpm BP: 150 / 63 mmHg Heart Rhythm: Sinus Rhythm Technical Quality: Good Exam Date: 12/16/2023 10:17 AM Exam Location: Echo Lab Patient Status: Inpatient Admit Date: 12/15/2023 Staff Ordering Physician: Brisa Infante MD Irrigating Pump Operator: Favio Vazquez RDCS Attending Provider: Gume Guevara MD Exam Type: CA echo doppler color flow Study Info Indications - chest pain Complete two-dimensional, color flow and Doppler transthoracic echocardiogram is performed. Summary 1. Complete two-dimensional, color flow and Doppler transthoracic echocardiogram is performed. 2. Concentric left ventricular hypertrophy with normal appearing systolic contractility and grade 1 diastolic noncompliance. 3. Mildly sclerotic aortic valve which is nonstenotic. 4. Mildly calcified mitral valve annual. Left Ventricle Left ventricular chamber dimension is normal. Left ventricular systolic function is normal, estimated at 65-70%. There is moderate concentric increased left ventricular wall thickness. The left ventricular diastolic function is grade I diastolic dysfunction. Right Ventricle Right ventricular chamber dimension is normal. Left Atria Left atrial chamber dimension is normal. Right Atria Right atrial chamber dimension is normal. Aortic Valve The aortic valve is trileaflet. There is mild aortic valve sclerosis. Pulmonic Valve The pulmonic valve is normal. Mitral Valve The mitral valve has normal leaflets. The mitral valve annulus is mildly calcified. Tricuspid Valve The tricuspid valve leaflets are normal. Pericardium/Pleural The pericardium appears normal. Aorta The aortic root size at the sinus of Valsalva is normal. Left Ventricular Outflow Tract Name Value Normal LVOT 2D LVOT Diameter 1.9 cm LVOT Doppler LVOT Peak Gradient 5 mmHg LVOT Mean Gradient 3 mmHg LVOT VTI 22 cm LVOT VTI/AV VTI Ratio 0.8 LVOT Stroke Volume 61 ml LVOT CO 4.7 l/min LVOT CI 1.9 l/min/m2 Pulmonic Valve Name Value Normal PV Doppler PV Peak Gradient 4 mmHg Mitral Valve Name Value Normal MV Doppler MV Decel Craig 414 cm/s2 MV PHT 55 ms MV Area (PHT) 4.0 cm2 4.0-5.0 MV Diastolic Function MV E Peak Velocity
[2023-12-16 04:00] VITALS: PULSE 69
--- NOTE | 2023-12-16 05:18 | PC.NURSE ---
This patient, Carlene Guthrie, was transferred to [[id number] ] on 12/16/23 at 0518. Personal belongings sent with patient. Report given to [Alfred vu]. Appropriate documentation sent with patient.
[2023-12-16] MEDS: LEVOTHYROXINE SODIUM 100 MCG TABLET 200 MCG PO (06:22)
[2023-12-16 07:41] LABS: Glucose Point of Care 206 mg/dl (65-105)
[2023-12-16 08:00] VITALS: PULSE 69; RESP 14; O2SAT 100
--- NOTE | 2023-12-16 08:23 | PM.IMPN ---
Progress Note: A&P Assessment and Plan (1) Hypothyroidism: Code(s): E03.9 - Hypothyroidism, unspecified Status: Acute (2) Hypertension: Code(s): I10 - Essential (primary) hypertension Status: Acute (3) Diabetes type 2, controlled: Code(s): E11.9 - Type 2 diabetes mellitus without complications Status: Acute (4) Chest pain: Qualifiers: Chest pain type: unspecified Qualified Code(s): R07.9 - Chest pain, unspecified Code(s): R07.9 - Chest pain, unspecified Status: Acute (5) Morbid obesity with BMI of 40.0-44.9, adult: Code(s): E66.01 - Morbid (severe) obesity due to excess calories; Z68.41 - Body mass index [BMI] 40.0-44.9, adult Status: Acute Plan (1) Chest pain: Qualifiers: Chest pain type: unspecified Qualified Code(s): R07.9 - Chest pain, unspecified Code(s): R07.9 - Chest pain, unspecified Status: Acute Assessment and Plan: Unstable angina Patient has a history of CAD status post stent, patient has been having intermittent chest pain since yesterday Serial trops: Negative Pending echocardiogram Telemetry monitoring Cardiology consult Supportive care Continue aspirin 81 mg daily p.o., nitroglycerin sublingual p.r.n. Lexiscan stress test is recommended, patient declined because of concern for of insurance coverage Follow echocardiogram (2) Diabetes type 2, controlled: Code(s): E11.9 - Type 2 diabetes mellitus without complications Status: Acute Assessment and Plan: Hold home medication glipizide during hospitalization Start insulin sliding scale a.c. q.h.s. (3) Hypertension: Code(s): I10 - Essential (primary) hypertension Status: Acute Assessment and Plan: Continue lisinopril 20 mg daily p.o. (4) Hypothyroidism: Code(s): E03.9 - Hypothyroidism, unspecified Status: Acute Assessment and Plan: Continue Synthroid 200 mcg daily p.o., (5) Morbid obesity with BMI of 40.0-44.9, adult: Code(s): E66.01 - Morbid (severe) obesity due to excess calories; Z68.41 - Body mass index [BMI] 40.0-44.9, adult Status: Acute Subjective Date/time seen: 12/16/23 08:23 Interval history: I saw examined patient today, patient feels comfortable, denies chest pain today, also denies shortness breath. Patient is afebrile, blood pressure stable, no new issue or events overnight. Exam Narrative: GENERAL: Pleasant, in no acute distress. Well-nourished. - EYES: EOMI. Anicteric. - HENT: Moist mucous membranes. - LUNGS: Clear to auscultation bilaterally, no wheezing, rhonchi, or rales. - CARDIOVASCULAR: Regular rate and rhythm. No murmur. No JVD. - ABDOMEN: Soft, non-tender and non-distended. No palpable masses. - EXTREMITIES: No edema. Peripheral pulses 2+. Non-tender. - NEUROLOGIC: No focal neurological deficits. CN II-XII grossly intact. - PSYCHIATRIC: Awake, Alert and oriented x 3. Appropriate mood and affect. - SKIN: No rashes or lesions. Warm. - LYMPH: No cervical lymphadenopathy. Objective Data Vital Signs Vital Signs: Vital Signs - 24 hr 12/15/23 10:00 12/15/23 12:00 12/15/23 12:00 Temperature Pulse Rate 73 81 Respiratory Rate Blood Pressure Pulse Oximetry Oxygen Delivery Room Air 12/15/23 12:00 12/15/23 14:00 12/15/23 16:00 Temperature 98.4 F 97.1 F L Pulse Rate 82 83 84 Respiratory Rate 18 18 Blood Pressure 114/63 118/65 Pulse Oximetry 97 100 Oxygen Delivery 12/15/23 16:00 12/15/23 20:00 12/15/23 20:00 Temperature Pulse Rate 83 84 84 Respiratory Rate 18 Blood Pressure Pulse Oximetry 100 Oxygen Delivery Room Air 12/15/23 23:20 12/15/23 23:52 12/16/23 04:00 Temperature 97.8 F Pulse Rate 84 86 69 Respiratory Rate 14 Blood Pressure 150/63 H Pulse Oximetry 100 Oxygen Delivery Intake/Output Intake/Output: Intake & Output 12/13/23 12/14/23 12/15/23
[2023-12-16] MEDS: ESCITALOPRAM OXALATE 10 MG TABLET 20 MG PO (09:00)
[2023-12-16] MEDS: INSULIN ASPART (*BKC) 100 UNITS/ML SUB-Q ×2 (09:00→12:01)
[2023-12-16] MEDS: ASPIRIN 81 MG ENTERIC TABLET PO (09:00)
[2023-12-16] MEDS: lisinopriL 10 MG TABLET PO (09:00)
[2023-12-16 09:04] LABS: Basophils Absolute Auto 0.1 K/mm3 (0.0-0.1); Basophils Percent Auto 1.1 % (0.2-1.2); Eosinophils Absolute Auto 0.3 K/mm3 (0-0.3); Eosinophils Percent Auto 3.3 % (0-4.4); Hematocrit 44.4 % (37.0-47.0); Hemoglobin 14.6 g/dL (12.0-15.0); Immature Granulocyte Absolute 0.03 K/mm3 (0.00-0.031); Immature Granulocyte Percent A 0.4 % (0-0.5); Lymphocytes Absolute Auto 2.32 K/mm3 (0.9-3.2); Lymphocytes Percent Auto 30.7 % (18.3-44.2); Mean Corpuscular HGB Conc 32.9 g/dl (32-36); Mean Corpuscular Hemoglobin 28.8 pg (26-34); Mean Corpuscular Volume 87.6 fl (80-100); Mean Platelet Volume 9.8 fl (7.4-10.4); Monocytes Absolute Auto 0.6 K/mm3 (0.1-0.6); Monocytes Percent Auto 8.1 % (2.6-8.5); Neutrophils Absolute Auto 4.3 K/mm3 (1.3-6.7); Neutrophils Percent Auto 56.4 % (45.5-73.1); Platelet Count Result 268 k/mm3 (150-375); Red Blood Count 5.07 M/mm3 (4.2-5.4); Red Cell Distribution Width 12.9 % (11.5-14.5); White Blood Count 7.6 K/mm3 (4.5-10.0)
[2023-12-16 09:14] LABS: Anion Gap 7 mmol/L (4-12); Blood Urea Nitrogen 12 mg/dL (7-17); Calcium 8.5 mg/dL (8.4-10.2); Carbon Dioxide 27 mmol/L (22-30); Chloride 103 mmol/L (98-107); Estimated CRCL calculation 147 ml/min; Estimated Glomerular Filt Rate > 60; Glucose 220 mg/dL (65-110); Sodium 137 mmol/L (137-145)
--- NOTE | 2023-12-16 09:26 | PM.PNCARD ---
Progress Note: A&P Assessment and Plan (1) Chest pain: Qualifiers: Chest pain type: unspecified Qualified Code(s): R07.9 - Chest pain, unspecified Code(s): R07.9 - Chest pain, unspecified Status: Acute Plan Atypical chest pain with negative cardiac enzymes and no dynamic EKG changes Coronary artery disease with history of PCI to the LAD 3 years ago in outside hospital. Hypertension control Mixed dyslipidemia Chronic diastolic heart failure currently compensated Obesity Depression Diabetes mellitus type 2 Hypothyroidism Plan Continue aspirin 81 mg daily Continue Lasix 20 mg p.o. b.i.d. Continue lisinopril Echo pending, if unremarkable she can be discharged later today. Lexiscan was not ordered, discussed that with negative troponins and normal EKG, no need for inpatient stress testing. She is to follow up with Dr. Cantu within the next couple of weeks to discuss possible outpatient stress test. She understands and is in agreement with this plan, grateful that stress test is not being done as she was concerned her insurance would not cover this. Subjective Date/time seen: 12/16/23 09:26 Interval history: Cardiology follow up for chest pain Patient is sleeping when I enter the room but awakens to voice. She states she is feeling much better this morning and initially denies any chest pain then states that perhaps her pain isn't completely resolved but much improved. Review of Systems Review of Systems: All systems reviewed & are unremarkable except as noted in HPI and below Exam Const: General: comfortable and no acute distress Other: Able to lie flat HENMT: Face/Nose/Sinus: Normal nares present and no epistaxis Mouth: Yes moist mucous membranes Eyes: Sclera: sclerae normal Pupils: Equal, round and reactive pupils present Neck: Neck: supple and no JVD Carotids: no bruits Resp: Auscultation: clear to auscultation bilaterally and lung sounds not diminished Other: No chest wall tenderness Cardio: Rate: regular rate Rhythm: regular rhythm Heart sounds: no gallops, no murmurs and no rubs GI: Auscultation: normal bowel sounds Skin: General skin exam: normal color, rashes and/or lesions noted and no erythema Other: Warm Neuro: Cranial nerves: Yes Equal, round and reactive pupils present Speech: normal speech Other: No obvious focal deficit or facial asymmetry Extrem: General: no edema Other: Objective Data Vital Signs Vital Signs: Vital Signs - 24 hr 12/15/23 10:00 12/15/23 12:00 12/15/23 12:00 Temperature Pulse Rate 73 81 Respiratory Rate Blood Pressure Pulse Oximetry Oxygen Delivery Room Air 12/15/23 12:00 12/15/23 14:00 12/15/23 16:00 Temperature 36.9 C 36.2 C L Pulse Rate 82 83 84 Respiratory Rate 18 18 Blood Pressure 114/63 118/65 Pulse Oximetry 97 100 Oxygen Delivery 12/15/23 16:00 12/15/23 20:00 12/15/23 20:00 Temperature Pulse Rate 83 84 84 Respiratory Rate 18 Blood Pressure Pulse Oximetry 100 Oxygen Delivery Room Air 12/15/23 23:20 12/15/23 23:52 12/16/23 04:00 Temperature 36.6 C Pulse Rate 84 86 69 Respiratory Rate 14 Blood Pressure 150/63 H Pulse Oximetry 100 Oxygen Delivery Intake/Output Intake/Output: Intake & Output 12/13/23 12/14/23 12/15/23 12/16/23 23:59 23:59 23:59 23:59 Intake Total 900 460 Output Total 2000 600 Balance -1100 -140 Meds/Results Medications: Active Medications Generic Name Dose Route Start Last Admin Trade Name Freq PRN Reason Stop Dose Admin Acetaminophen 650 mg 12/15/23 09:56 12/15/23 12:04 Acetaminophen 325 Mg Tablet PO 650 mg Q6H PRN Administration Pain Rated 1-3 Aspirin 81 mg 12/15/23 09:00 12/16/23 09:00 Aspirin 81 Mg Enteric Tablet PO 81 mg DAILY CARLY Administration Dextrose 12.5 gm 12/15/23 10:05 Dextrose 50% 25 Gm/50 Ml Syringe IV PUSH
[2023-12-16 11:05] VITALS: BMI 43.0
[2023-12-16 11:43] LABS: Glucose Point of Care 212 mg/dl (65-105)
[2023-12-16 16:59] LABS: Glucose Point of Care 237 mg/dl (65-105)
--- NOTE | 2023-12-16 17:43 | PM.DS ---
DS: Admitting Diagnosis Discharge Date 12/16/23 Admitting Diagnosis (1) Hypothyroidism: Code(s): E03.9 - Hypothyroidism, unspecified Status: Acute (2) Hypertension: Code(s): I10 - Essential (primary) hypertension Status: Acute (3) Diabetes type 2, controlled: Code(s): E11.9 - Type 2 diabetes mellitus without complications Status: Acute (4) Chest pain: Qualifiers: Chest pain type: unspecified Qualified Code(s): R07.9 - Chest pain, unspecified Code(s): R07.9 - Chest pain, unspecified Status: Acute (5) Morbid obesity with BMI of 40.0-44.9, adult: Code(s): E66.01 - Morbid (severe) obesity due to excess calories; Z68.41 - Body mass index [BMI] 40.0-44.9, adult Status: Acute DS: Discharge Diagnosis Discharge Diagnosis (1) Hypothyroidism: Code(s): E03.9 - Hypothyroidism, unspecified Status: Acute (2) Hypertension: Code(s): I10 - Essential (primary) hypertension Status: Acute (3) Diabetes type 2, controlled: Code(s): E11.9 - Type 2 diabetes mellitus without complications Status: Acute (4) Chest pain: Qualifiers: Chest pain type: unspecified Qualified Code(s): R07.9 - Chest pain, unspecified Code(s): R07.9 - Chest pain, unspecified Status: Acute (5) Morbid obesity with BMI of 40.0-44.9, adult: Code(s): E66.01 - Morbid (severe) obesity due to excess calories; Z68.41 - Body mass index [BMI] 40.0-44.9, adult Status: Acute DS: Summary Hospital Course Hospital Course: This is a 53-year-old female with past medical history significant for obesity, HTN, Hypothyroidism, T2DM.Patient presents to ED due to chest pain for the last 3 days took a nitro that made it go away, denies n/v/d/abdominal pain, no dizziness, no sob, no cough, no leg swelling, has a lot of stress at work. Preliminary work up unrevealing. Chest pain: Qualifiers: Chest pain type: unspecified Qualified Code(s): R07.9 - Chest pain, unspecified Code(s): R07.9 - Chest pain, unspecified Status: Acute Assessment and Plan: Unstable angina Patient has a history of CAD status post stent, patient has been having intermittent chest pain since yesterday Serial trops: Negative Pending echocardiogram Telemetry monitoring Cardiology consult Supportive care Continue aspirin 81 mg daily p.o., nitroglycerin sublingual p.r.n. Lexiscan stress test is recommended, patient declined because of concern for of insurance coverage Follow echocardiogram: Unremarkable, EF normal, Diabetes type 2, controlled: Code(s): E11.9 - Type 2 diabetes mellitus without complications Status: Acute Assessment and Plan: Hold home medication glipizide during hospitalization Start insulin sliding scale a.c. q.h.s. Resume home medication on discharge Hypertension: Code(s): I10 - Essential (primary) hypertension Status: Acute Assessment and Plan: Continue lisinopril 20 mg daily p.o. Hypothyroidism: Code(s): E03.9 - Hypothyroidism, unspecified Status: Acute Assessment and Plan: Continue Synthroid 200 mcg daily p.o., Follow-up TSH per PCP Morbid obesity with BMI of 40.0-44.9, adult: Code(s): E66.01 - Morbid (severe) obesity due to excess calories; Z68.41 - Body mass index [BMI] 40.0-44.9, adult Status: Acute Time Spent with Patient Time attestation: Total time spent providing and/or coordinating discharge services: Exam Narrative: GENERAL: Pleasant, in no acute distress. Well-nourished. - EYES: EOMI. Anicteric. - HENT: Moist mucous membranes. - LUNGS: Clear to auscultation bilaterally, no wheezing, rhonchi, or rales. - CARDIOVASCULAR: Regular rate and rhythm. No murmur. No JVD. - ABDOMEN: Soft, non-tender and non-distended. No palpable masses. - EXTREMITIES: No edema. Peripheral pulses 2+. Non-tender. - N
== END 2023-12-16 17:59 | disposition home or self-care (01) ==
LOC: ANHED 12-15 01:04 → ANHIMU 12-15 04:06 → ANH3MEDSUR 12-16 17:47 → ANHIMU 12-17 08:39
PROVIDERS: Student in an Organized Health Care Education/Training Program; Admitting Provider Internal Medicine; Emergency Provider Nurse Practitioner Family; Visit Provider Hospitalist
DX: R07.9 Chest pain, unspecified (principal); I11.0 Hypertensive heart disease with heart failure; I50.32 Chronic diastolic (congestive) heart failure; E11.9 Type 2 diabetes mellitus without complications; E03.9 Hypothyroidism, unspecified; E78.5 Hyperlipidemia, unspecified; I25.10 Atherosclerotic heart disease of native coronary artery without angina pectoris; F32.A Depression, unspecified; Z79.82 Long term (current) use of aspirin; Z79.84 Long term (current) use of oral hypoglycemic drugs; Z95.5 Presence of coronary angioplasty implant and graft; Z87.891 Personal history of nicotine dependence; E66.01 Morbid (severe) obesity due to excess calories; Z68.41 Body mass index [BMI] 40.0-44.9, adult
CPT/HCPCS: 36415; 71046; 80048; 80053; 80061; 82948; 83690; 83880; 84484; 85025; 85380; 85610; 85730; 93005; 93306; 99285; A9270; G0378; J1815

== ENCOUNTER 2024-09-06 12:56 | Outpatient (CLI) | payer BC, SELFPAY ==
--- NOTE | ~2024-09-06 | CT_ITS ---
Non-contrast CT scan of the Abdomen and Pelvis Clinical indication: Kidney stones Technique: 2.5 mm axial scans were obtained through the abdomen and pelvis without intravenous or or al contrast. Dose reduction technique was used on this scan by utilizing automated exposure control a nd iterative reconstruction technique. The dose-length product (DLP) was 1276.35 mGy-cm. COMPARISON: 08/22/2021 Findings: Images through the lung bases reveal no abnormalities. Punctate nonobstructing renal stones are present. No left renal stone. No ureteral stone on either si de. Questionable minimal fullness of the right renal collecting system which could reflect recently p assed stone. No left hydronephrosis. The liver, spleen, pancreas, and adrenals appear normal. 1.7 cm calcified gallstone present. There ar e mild atherosclerotic calcifications of the aorta. There is no evidence of bowel obstruction. Images through the pelvis were performed. There is no evidence of ascites or lymphadenopathy. Urinary bladder unremarkable. Probable 1.9 cm right adnexal cyst. Status post hysterectomy. Impression: Minimal right hydronephrosis could reflect recently passed stone. No ureteral stones seen currently. Punctate nonobstructing renal stones. Probable 1.9 cm right adnexal cyst. Reviewed, dictated and finalized at location M. Impression: Minimal right hydronephrosis could reflect recently passed stone. No ureteral s tones seen currently. Punctate nonobstructing renal stones. Probable 1.9 cm right adnexal cyst.
--- OUTSIDE RECORDS SUMMARY | 2024-09-06 13:01 | XMS_ITS | Referral Summary ---
Author Organization [facility] Address [address] [place] [address] Care Team Providers Care Machinist Linotype Name Role Phone Silvino Mazariegos MD Primary Care Provider [phone] Vinnie Pina MD Unavailable [phone] SopDeirdre chen OT Unavailable [phone] Allergies Active Allergy Reactions Criticality Noted Date Comments Emxsvvo-Vre-Wuj Reductase Inhibitors Other (See comments) Low 01/18/2023 Cognitive problems and muscle pain and mobility issues tried Livalo Medications aspirin 81 mg chewable tablet Take 81 mg by mouth daily 03/04/20 20 Active semaglutide (Ozempic) 0.25 mg or 0.5 mg(2 mg/1.5 mL) pen injectorIndicat ions:type 2 diabetes mellitus Inject 0.5 mg under the skin every 7 days for 12 doses 1 Syringe 3 09/08/19 21 Active isosorbide mononitrate ER (IMDUR) 30 mg 24 hr tablet Take 1 tablet (30 mg total) by mouth daily 90 tablet 3 12/23/19 22 Active metoprolol XL (TOPROL-XL) 25 mg extended release tablet Take 1 tablet (25 mg total) by mouth daily 90 tablet 3 12/23/19 22 Active nitroglycerin (NITROSTAT) 0.[address] 1 tablet (0.4 mg total) under the tongue every 5 (five) minutes as needed for chest pain 90 tablet 11 11/08/19 24 Active metFORMIN (GLUCOPHAGE) 500 mg tablet Take 2 tablets (1,000 mg total) by mouth 2 (two) times a day with meals 360 tablet 11/08/19 24 Active lisinopriL (PRINIVIL,ZESTR IL) 20 mg tablet Take 0.5 tablets (10 mg total) by mouth daily 15 tablet 11/08/19 24 025 Active glipiZIDE (GLUCOTROL) 10 mg tabletIndicatio ns:type 2 diabetes mellitus Take 1 tablet (10 mg total) by mouth 2 (two) times a day before breakfast and lunch 60 tablet 11/08/19 24 025 Active semaglutide (Ozempic) 0.25 mg or 0.5 mg(2 mg/1.5 mL) pen injector injectionIndica tions:type 2 diabetes mellitus Inject 0.5 mg under the skin every 7 days 1.5 mL 12/20/19 025 Active semaglutide 0.25 mg or 0.5 mg (2 mg/3 mL) pen injector injectionIndica tions:type 2 diabetes mellitus Inject 0.5 mg under the skin every 7 days 3 mL 12/20/19 24 025 Active levothyroxine (Euthyrox) 175 mcg tablet Take 1.5 tablets (262.5 mcg total) by mouth early morning babysitter before breakfast 135 tablet 3 12/20/19 24 025 Active rosuvastatin (CRESTOR) 5 mg tablet Take 1 tablet (5 mg total) by mouth daily 30 tablet 11 12/26/19 24 025 Active furosemide (LASIX) 20 mg tablet Take 1 tablet (20 mg total) by mouth 2 (two) times a day 180 tablet 1 01/10/20 24 025 Active nateglinide (STARLIX) 120 mg tabletIndicatio ns:type 2 diabetes mellitus Take 1 tablet (120 mg total) by mouth 3 (three) times a day before meals 90 tablet 01/23/20 24 025 Active escitalopram (LEXAPRO) 20 mg tablet Take 1 tablet by mouth once daily 90 tablet 08/12/19 25 Active escitalopram (LEXAPRO) 20 mg tablet Take 1 tablet by mouth once daily 90 tablet 06/22/19 25 03/25/2 025 Discontinued Active Problems Problem Noted Date Diagnosed Date JC (generalized anxiety disorder) 01/23/2024 Uncontrolled type 2 diabetes mellitus with hyperglycemia, without long-term current use of insulin 01/18/2023 High serum parathyroid hormone (PTH) 01/18/2023 Kidney calculi 01/18/2023 Hot flashes 01/18/2023 Angina pectoris 03/22/2022 Screening for colorectal cancer 08/03/2021 Right upper quadrant abdominal pain 08/03/2021 Calculus of gallbladder with out cholecystitis without obstruction 08/03/2021 Cystitis without hematuria 06/20/2021 Supraspinatus sprain, right, subsequent encounte r 12/20/2020 Pure hypercholesterolemia 12/20/2020 Uncontrolled type 2 diabetes mellitus with hyper glycemia 12/20/2020 Coronary artery disease invo lving rampart coronary artery of rampart heart without angina pectoris 12/20/2020 Vulval candidosis 12/20/2020 Moderate episode of recurrent major depressive d isorder 12/20/2020 Acute pain of right shoulder 11/03/2020 Atherosclerosis of coronary artery 03/10/2020 History of abdominal hysterectomy 03/10/2020 Right kidney stone 12/28/2019 Overview (12/28/2019): ESWL 12/2018 Blood glucose elevated 07/25/2018 Suppurative hidradenitis 07/25/2018 Post-menopausal 07/25/2018 Vaccine refused by patient 07/25/2018 Former heavy tobacco smoker 08/01/2016 Fatigue 02/23/2014 Abnormal weight gain 02/23/2014 Malaise and fatigue 10/03/2013 Overview (08/23/2016): MALAISE AND FATIGUE NEC Vitamin D deficiency 10/03/2013 Overview (08/24/2016): VITAMIN D DEFICIENCY NOS Tear of medial meniscus of knee 09/21/2013 Chondromalacia of patella 09/21/2013 Hypothyroidism 08/14/2013 Overview (01/26/2022): HYPOTHYROIDISM NOS HYPOTHYROIDISM NOS Last Assessment & Plan: Is due TSH and T4 free Impression: retest tsh free t4. Assessment & Plan (12/28/2019 3:10 PM CDT): Is due TSH and T4 free Knee pain 08/14/2013 Effusion of knee 08/14/2013 Thyroid activity decreased 08/14/2013 Overview (08/29/2017): Impression: retest tsh free t4. Type 2 diabetes mellitus 07/03/2013 Overview (01/26/2022): DMII WO CMP UNCNTRLD DMII WO CMP UNCNTRLD Impression: anticipate improvement with resuming exercise. A1c 7.8 now. A1C was 8.7% 09/2018 Last Assessment & Plan: Not testing and not in follow up. Counselled and explained weight loss and meds would be the best bet here Hypertension 07/03/2013 Osteoarthritis of knee 07/03/2013 Diabetes mellitus 07/03/2013 Overview (12/28/2019): Impression: anticipate improvement with resuming exercise. A1c 7.8 now. A1C was 8.7% 09/2018 Assessment & Plan (12/28/2019 3:14 PM CDT): Not testing and not in follow up. 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 Resolved Problems Problem Noted Date Diagnosed Date Resolved Date Sleep apnea 01/26/2022 01/18/2023 Overview (01/26/2022): on C-PAP for 2 years Immunizations Immunization Administration Dates Next Due Hep A, Adult 11/29/2006,03/01/2006 Hep A, Unspecified 11/29/2006,03/01/2006 Hep B Vaccine 11/29/2006,04/16/2006,03/01/2006 Pfizer SARS-CoV-2 Monovalent Vaccination (12+ Yrs) PURPLE 04/19/2021,09/26/2020,09/15/2020 Tdap 05/20/2021,04/16/2006 Tetanus toxoid, adsorbed 04/20/2021 Social History Tobacco Use Types Packs/Day Years Used Date Smoking Tobacco: Former Smokeless Tobacco: Current Alcohol Use Standard Drinks/Week Comments No 0 (1 standard drink = 0.6 oz pur e alcohol) Comments Unknown Sex and Gender Information Value Date Recorded Sex Assigned at Not on file Legal Sex Female 12:38 AM INSPECTOR METAL CAN Gender Identity Not on file Sexual Orientation Not on file Last Filed Vital Signs Vital Sign Reading Time Taken Comments Blood Pressure 163/101 01/23/2024 8:40 AM CDT Pulse 89 01/23/2024 8:40 AM CDT Temperature 36.5 C (97.7 F) 01/23/2024 8:40 AM CDT Respiratory Rate - - Oxygen Saturation 98% 03/16/2022 8:08 AM CDT Inhaled Oxygen Concentration - - Weight 126.6 kg (279 lb) 01/23/2024 8:40 AM CDT Height 170.2 cm (5' 7.01 ) 01/23/2024 8:40 AM CD T Body Mass Index 43.69 01/23/2024 8:40 AM CDT Plan of Treatment Not on file Procedures Procedure Name Priority Date/Time Associated Diagnosis Comments LIPID PANEL Routine 11/08/2023 9:15 AM CDT Health maintenance examination Type 2 diabetes mellitus with hyperosmolarity without coma, without long-term current use of insulin (HCC) Coronary artery disease involving rampart coronary artery of rampart heart without angina pectoris POCT HEMOGLOBIN A1C Routine 11/08/2023 8:43 AM CDT Health maintenance examination from Last 3 Months or Most Recently Relevant to Health Maintenance Results * (ABNORMAL) Lipid panel (11/08/2023 9:15 AM CDT) Triglyceride 207(H) 0 - 150 mg/dL [facility] Cholesterol 179 0 - 200 mg/dL [facility] HDL 46 >45 mg/dL [facility] LDL-Calculated 92 mg/dL [facility] CHOL/HDL Risk Ratio 4 Ratio [facility] LDL/HDL Risk Ratio 2 Ratio [facility] Blood 11/08/2023 9:15 AM CDT 11/08/2023 9:27 AM CDT Silvino Mazariegos MD LAB BLOOD ORDERABLES Final Result [facility] [address] [place] [address] * (ABNORMAL) POCT hemoglobin A1c (11/08/2023 8:43 AM CDT) Hemoglobin A1C, POC 12.5 % Blood 11/08/2023 8:43 AM CDT Silvino Mazariegos MD POINT OF CARE TEST ORDERAB LES Final Result from Last 3 Months or Most Recently Relevant to Health Maintenance Insurance [facility] Address: [address] [place] [address] [facility] Care Teams Machinist Linotype Relationship Specialty Start Date End Date Silvino Mazariegos MD [address] [place] [address] PCP - General 08/05/17 [place] [address] [place] [address] Surgeon Orthopedic Surgery 01/02/18 Deirdre Underwood OT [address] [facility] [address] [place] [address] Occupational Therapist Occupational Therapy 01/02/18
--- OUTSIDE RECORDS SUMMARY | 2024-09-06 13:01 | XMS_ITS | Encounter Summary ---
Author Organization [facility] Address [address] [place] [address] Phone Care Team Providers Care Automation Tender Name Role Phone Silvino Mazariegos MD Primary Care Provider [phone] Vinnie Pina MD Unavailable Deirdre Underwood OT Unavailable [phone] Encounter Details Date Type Department Care Team (Late st Contact Info) Description 12/06/2021 Orders Only [facility] [address] [place] [address] Scanning, Provider Social History Tobacco Use Types Packs/Day Years Used Date Smoking Tobacco: Former Smokeless Tobacco: Current Alcohol Use Standard Drinks/Week Comments No 0 (1 standard drink = 0.6 oz pur e alcohol) Comments Unknown Sex and Gender Information Value Date Recorded Sex Assigned at Not on file Legal Sex Female 12:38 AM SURGICAL RN Gender Identity Not on file Sexual Orientation Not on file documented as of this encounter Plan of Treatment Not on file documented as of this encounter Procedures Procedure Name Priority Date/Time Associated Diagnosis Comments SCAN - LABS 12/06/2021 11:42 AM CDT documented in this encounter Results * SCAN - LABS (12/06/2021 11:42 AM CDT) us Provider Scanning Final Result documented in this encounter Visit Diagnoses Not on filedocumented in this encounter Care Teams Automation Tender Relationship Specialty Start Date End Date Silvino Mazariegos MD [address] [place] [address] PCP - General 08/05/17 [place] [address] [place] [address] Surgeon Orthopedic Surgery 01/02/18 Deirdre Underwood OT [address] [facility] [address] [place] [address] Occupational Therapist Occupational Therapy 01/02/18 documented as of this encounter
--- OUTSIDE RECORDS SUMMARY | 2024-09-06 13:01 | XMS_ITS | Encounter Summary ---
Author Organization [facility] Address [address] [place] [address] Phone Care Team Providers Care Seo Intern Name Role Phone Silvino Mazariegos MD Primary Care Provider [phone] Vinnie Pina MD Unavailable [phone] Deirdre Underwood OT Unavailable [phone] Encounter Details Date Type Department Care Team (Latest Contact Info) Description 02/29/2020 Orders Only [facility] Scanning, Provider Social History Tobacco Use Types Packs/Day Years Used Date Smoking Tobacco: Former Smokeless Tobacco: Current Alcohol Use Standard Drinks/Week Comments No 0 (1 standard drink = 0.6 oz pur e alcohol) Comments Unknown Sex and Gender Information Value Date Recorded Sex Assigned at Not on file Legal Sex Female 12:38 AM JAVA ENGINEER Gender Identity Not on file Sexual Orientation Not on file documented as of this encounter Plan of Treatment Not on file documented as of this encounter Procedures Procedure Name Priority Date/Time Associated Diagnosis Comments CARDIOLOGY DOCUMENT SCAN 02/29/2020 documented in this encounter Results * SCAN - CARDIOLOGY (02/29/2020) Anatomical Region Laterality Modality Other us Provider Scanning CV CARDIAC SERVICES PROCEDURES Edited Result - Final documented in this encounter Visit Diagnoses Not on filedocumented in this encounter Care Teams Seo Intern Relationship Specialty Start Date End Date Silvino Mazariegos MD [address] [place] [address] PCP - General 08/05/17 [place] [address] [place] [address] Surgeon Orthopedic Surgery 01/02/18 Deirdre Underwood OT [address] [facility] [address] [place] [address] Occupational Therapist Occupational Therapy 01/02/18 documented as of this encounter
--- OUTSIDE RECORDS SUMMARY | 2024-09-06 13:01 | XMS_ITS | Encounter Summary ---
Author Organization [facility] Address [address] [place] [address] Phone Care Team Providers Care Wood Polisher Name Role Phone Silvino Mazariegos MD Primary Care Provider [phone] Vinnie Pina MD Unavailable [phone] Deirdre Underwood OT Unavailable [phone] Encounter Details Date Type Department Care Team (Late st Contact Info) Description 02/16/[address] [facility] [address] [place] [address] Scanning, Provider Social History Tobacco Use Types Packs/Day Years Used Date Smoking Tobacco: Former Smokeless Tobacco: Current Alcohol Use Standard Drinks/Week Comments No 0 (1 standard drink = 0.6 oz pur e alcohol) Comments Unknown Sex and Gender Information Value Date Recorded Sex Assigned at Not on file Legal Sex Female 12:38 AM DRUM PRINTER Gender Identity Not on file Sexual Orientation Not on file documented as of this encounter Plan of Treatment Not on file documented as of this encounter Procedures Procedure Name Priority Date/Time Associated Diagnosis Comments SCAN - RADIOLOGY/IMAGING 02/16/2019 documented in this encounter Results * SCAN - RADIOLOGY/IMAGING (02/16/2019) Anatomical Region Laterality Modality Other us Provider Scanning Final Result documented in this encounter Visit Diagnoses Not on filedocumented in this encounter Care Teams Wood Polisher Relationship Specialty Start Date End Date Silvino Mazariegos MD [address] [place] [address] PCP - General 08/05/17 [place] [address] [place] [address] Surgeon Orthopedic Surgery 01/02/18 Deirdre Underwood OT [address] [facility] [address] [place] [address] Occupational Therapist Occupational Therapy 01/02/18 documented as of this encounter
--- OUTSIDE RECORDS SUMMARY | 2024-09-06 13:01 | XMS_ITS | Clinical Summary ---
Author Organization [facility] Address [address] [facility] [place] [address] Phone Care Team Providers Care Air Brush Decorator Name Role Phone Unavailable Primary Care Provider Unavailabl e Allergies No known active allergies Medications furosemide (LASIX) 80 mg Oral tablet daily. Active candesartan (ATACAND) 16 mg Oral Tab daily. Active LEVOTHYROXINE SODIUM (LEVOTHYROXINE ORAL) .3 mg daily Active escitalopram (LEXAPRO) 20 mg Oral tablet daily. Active VITAMIN B COMPLEX ORAL 50,000 units weekly Active POTASSIUM ORAL over the counter Active Active Problems Problem Noted Date Diagnosed Date HTN (hypertension) Diabetes mellitus Sleep apnea Overview (04/20/2010): on C-PAP for 2 years Obesity Hypothyroidism Depression Psoriasis Social History Tobacco Use Types Packs/Day Years Used Date Smoking Tobacco: Every Day Comments:She smokes -1 pack of cigarettes per day and has done so for two years Alcohol Use Standard Drinks/Week Comments No 0 (1 standard drink = 0.6 oz pur e alcohol) Comments Unknown Sex and Gender Information Value Date Recorded Sex Assigned at Not on file Legal Sex Female 5:58 AM INDUSTRY SEGMENT SPECIALIST Gender Identity Not on file Sexual Orientation Not on file Plan of Treatment Health Maintenance Due Date Last Done Comments DTAP/TDAP/TD VACCINES (1 - Tdap) 02/20/1988 HEPATITIS B VACCINES (1 of 3 - 19+ 3-dose series) 07/1987 HPV/Cotest (21-29) 1990 CERVICAL CANCER SCREENING 1999 HPV/Cotest (30-65) 1999 PAP SMEAR 1999 BREAST CANCER SCREENING 2009 COLORECTAL SCREENING 2014 Colorectal Cancer Screening 2014 FIT-DNA Q 3 years 2014 FIT/FOBT Q 1 year 2014 Flex Sig/CT Colonography Q 5 years 2014 ZOSTER VACCINE (1 of 2) 2019 INFLUENZA VACCINE (#1) 2023
--- OUTSIDE RECORDS SUMMARY | 2024-09-06 13:01 | XMS_ITS | Encounter Summary ---
Author Organization [facility] Address [address] [place] [address] Phone Care Team Providers Care Softball Umpire Name Role Phone Silvino Mazariegos MD Primary Care Provider [phone] Vinnie Pina MD Unavailable [phone] Deirdre Underwood OT Unavailable [phone] Encounter Details Date Type Department Care Team (Latest Contact Info) Description 03/01/2020 Orders Only [facility] Scanning, Provider Social History Tobacco Use Types Packs/Day Years Used Date Smoking Tobacco: Former Smokeless Tobacco: Current Alcohol Use Standard Drinks/Week Comments No 0 (1 standard drink = 0.6 oz pur e alcohol) Comments Unknown Sex and Gender Information Value Date Recorded Sex Assigned at Not on file Legal Sex Female 12:38 AM HAT AND CAP PARTS CUTTER HAND Gender Identity Not on file Sexual Orientation Not on file documented as of this encounter Plan of Treatment Not on file documented as of this encounter Procedures Procedure Name Priority Date/Time Associated Diagnosis Comments CARDIOLOGY DOCUMENT SCAN 03/01/2020 documented in this encounter Results * SCAN - CARDIOLOGY (03/01/2020) Anatomical Region Laterality Modality Other us Provider Scanning CV CARDIAC SERVICES PROCEDURES Final Result documented in this encounter Visit Diagnoses Not on filedocumented in this encounter Care Teams Softball Umpire Relationship Specialty Start Date End Date Silvino Mazariegos MD [address] [place] [address] PCP - General 08/05/17 [place] [address] [place] [address] Surgeon Orthopedic Surgery 01/02/18 Deirdre Underwood OT [address] [facility] [address] [place] [address] Occupational Therapist Occupational Therapy 01/02/18 documented as of this encounter
--- OUTSIDE RECORDS SUMMARY | 2024-09-06 13:01 | XMS_ITS | Encounter Summary ---
Author Organization [facility] Address [address] [place] [address] Phone Care Team Providers Care Passenger Rate Clerk Name Role Phone Silvino Mazariegos MD Primary Care Provider [phone] Vinnie Pina MD Unavailable Deirdre Underwood OT Unavailable [phone] Encounter Details Date Type Department Care Team (Late st Contact Info) Description 01/30/2019 Orders Only [facility] [address] [place] [address] Scanning, Provider Social History Tobacco Use Types Packs/Day Years Used Date Smoking Tobacco: Former Smokeless Tobacco: Current Alcohol Use Standard Drinks/Week Comments No 0 (1 standard drink = 0.6 oz pur e alcohol) Comments Unknown Sex and Gender Information Value Date Recorded Sex Assigned at Not on file Legal Sex Female 12:38 AM DISK GRINDER Gender Identity Not on file Sexual Orientation Not on file documented as of this encounter Plan of Treatment Not on file documented as of this encounter Procedures Procedure Name Priority Date/Time Associated Diagnosis Comments SCAN - RADIOLOGY/IMAGING 01/30/2019 documented in this encounter Results * SCAN - RADIOLOGY/IMAGING (01/30/2019) Anatomical Region Laterality Modality Other us Provider Scanning Final Result documented in this encounter Visit Diagnoses Not on filedocumented in this encounter Care Teams Passenger Rate Clerk Relationship Specialty Start Date End Date Silvino Mazariegos MD [address] [place] [address] PCP - General 08/05/17 [place] [address] [place] [address] Surgeon Orthopedic Surgery 01/02/18 Deirdre Underwood OT [address] [facility] [address] [address] Occupational Therapist Occupational Therapy 01/02/18 documented as of this encounter
--- OUTSIDE RECORDS SUMMARY | 2024-09-06 13:01 | XMS_ITS | Clinical Summary ---
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 before breakfast 135 tablet 3 12/20/19 24 [...] glycemia 12/20/2020 Coronary artery disease invo lving [place] coronary artery of [place] heart without angina pectoris 12/20/2020 Vulval candidosis [...] 04/19/2021,09/26/2020,09/15/2020 Tdap 05/20/2021,04/16/2006 Tetanus toxoid, adsorbed 04/20/2021 Surgical History Surgery Date Site/Laterality Comments HYSTERECTOMY Hysterectomy Medical History Medical History Date Comments Juvenile rheumatoid arthritis (HCC) juvenile rheumatoid arthritis Disorder of thyroid Thyroid dise ase Personal history of other di seases of the musculoskeletal system and connective tissue Personal history of juvenile rheumatoid arthritis - (Added by TW Conv) 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 (Added by TW Conv) Sleep apnea 01/26/2022 Formatting of th is note might be different from the original. on C-PAP for 2 years Family History Medical History Relation Name Comments Hypertension Brother 1 Family history of hypertension - (Added by TW Conv) Gout Brother 2 Family history of gout - (Added by TW Conv) Alcohol abuse Father Family history of alcoholism - (Added by TW Conv) Cancer Father Cancer -; /Fami ly history of malignant neoplasm - (Added by TW Conv) Diabetes Father Family history of diabetes mellitus - (Added by TW Conv) Hypertension Father Hypertension; / Family history of hypertension - (Added by TW Conv) Arthritis Mother Family history of arthritis - (Added by TW Conv) Hypertension Mother Family history of hypertension - (Added by TW Conv) Hypothyroidism Mother Hypothyroidis m; Kidney disease Mother Family histor y of kidney disease - (Added by TW Conv) Osteoporosis Mother Family history of osteoporosis - (Added by TW Conv) Hypothyroidism Other 1 Family histor y of Hypothyroidism; Diabetes type II Other 2 Family hist ory of Diabetes -Type 2; Hypertension Other 3 Family history of Hypertension; Other Other 4 Family history of Vit B12 deficiency; Relation Name Status Comments Brother 1 Brother 2 Father Mother Other 1 Other 2 Other 3 Other 4 Social History Tobacco Use Types Packs/Day Years Used Date Smoking Tobacco: Former Smokeless Tobacco: Current Alcohol Use Standard Drinks/Week Comments No 0 (1 standard drink = 0.6 oz pur e alcohol) Comments Unknown Sex and Gender Information Value Date Recorded Sex Assigned at Not on file 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 Gender Identity Not on file Sexual Orientation Not on file Obstetrics History Last Filed Vital Signs Vital Sign Reading [...] 01/23/2024 8:40 AM CDT Plan of Treatment Health Maintenance Due Date Last Done Comments Albumin Creatinine Ratio, Urine 1969 Breast Cancer Screening-Mammogram 1969 Colon Cancer Screening-Colonoscopy 1969 Depression Screening 1969 Hepatitis C Screening 1969 eGFR 1969 Dilated Eye Exam 1969 Foot Exam 1969 Pneumococcal vaccine <65 (1 of 2 - PCV) 02/20/1988 Zoster Vaccine (1 of 2) 2019 Covid-19 Vaccine (4 - 2023-2 5 season) 2024 04/19/2021, 09/26/2020, 09/15/2020 Influenza Vaccine (#1) 2024 Hemoglobin A1C 05/09/2024 11/08/2023, 090 05/2022, 03/22/2022, Additional history exists Lipid Panel 11/07/2024 11/08/2023, 09/0 05/2022, 12/22/2021, Additional history exists Regular Well Visit/Exam 18-64 11/07/2024, 01/18/2023, 08/03/2021, Additional history exists DTaP/Tdap/Td Vaccine (4 - Td or Tdap) 05/20/2031 05/20/2021, 04/20/2021, 04/16/2006 Hepatitis B Screening Completed 11/29/2006 , 04/16/2006, 03/01/2006 Procedures Procedure Name Priority Date/Time Associated Diagnosis Comments LIPID PANEL Routine 11/08/2023 9:15 AM CDT Health maintenance examination Type 2 diabetes mellitus with hyperosmolarity without coma, without long-term current use of insulin (HCC) Coronary artery disease involving [place] coronary artery of [place] heart without angina pectoris POCT HEMOGLOBIN A1C Routine 11/08/2023 8:43 AM CDT Health maintenance examination from Last 3 Months or Most Recently Relevant to Health Maintenance Results * (ABNORMAL) Lipid panel (11/08/2023 9:15 AM CDT) Triglyceride 207(H) 0 - 150 mg/dL [facility] Cholesterol 179 0 - 200 mg/dL [facility] HDL 46 >45 mg/dL [facility] LDL-Calculated 92 mg/dL [facility] CHOL/HDL Risk Ratio 4 Ratio [facility] LDL/HDL Risk Ratio 2 Ratio [facility] Blood 11/08/2023 9:15 AM CDT 11/08/2023 9:27 AM CDT Silvino Mazariegos MD LAB BLOOD ORDERABLES Final Result Performing Organization Address [facility]/State/[facility] Co de Phone Number [facility] [address] [place] [address] * (ABNORMAL) POCT hemoglobin A1c (11/08/2023 8:43 AM CDT) Hemoglobin A1C, POC 12.5 % Blood 11/08/2023 8:43 AM CDT Silvino Mazariegos MD POINT OF CARE TEST ORDERAB LES Final Result from Last 3 Months or Most Recently Relevant to Health [place] [address] [facility] [employer] [facility] Care Teams Deaf And Hard Of Hearing Teacher Relationship Specialty Start Date End Date Silvino Mazariegos MD [address] [place] [address] PCP - General 08/05/17 [place] [id number] [facility] [address] [place] [address] Surgeon Orthopedic Surgery 01/02/18 Deirdre Underwood, OT [address] [address] Occupational Therapist Occupational Therapy 01/02/18
--- OUTSIDE RECORDS SUMMARY | 2024-09-06 13:01 | XMS_ITS | Encounter Summary ---
Author Organization [facility] Address [address] [place] [address] Phone Care Team Providers Care Railroad Car Inspector Name Role Phone Silvino Mazariegos MD Primary Care Provider [phone] Vinnie Pina MD Unavailable [phone] Deirdre Underwood OT Unavailable [phone] Encounter Details Date Type Department Care Team (Late st Contact Info) Description 01/26/2019 Orders Only [facility] [address] [place] [address] Scanning, Provider Social History Tobacco Use Types Packs/Day Years Used Date Smoking Tobacco: Former Smokeless Tobacco: Current Alcohol Use Standard Drinks/Week Comments No 0 (1 standard drink = 0.6 oz pur e alcohol) Comments Unknown Sex and Gender Information Value Date Recorded Sex Assigned at Not on file 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 Gender Identity Not on file Sexual Orientation Not on file documented as of this encounter Plan of Treatment Not on file documented as of this encounter Procedures Procedure Name Priority Date/Time Associated Diagnosis Comments SCAN - RADIOLOGY/IMAGING 01/26/2019 documented in this encounter Results * SCAN - RADIOLOGY/IMAGING (01/26/2019) Anatomical Region Laterality Modality Other us Provider Scanning Edited Result - Final documented in this encounter Visit Diagnoses Not on filedocumented in this encounter Care Teams Railroad Car Inspector Relationship Specialty Start Date End Date Silvino Mazariegos MD [address] [place] [address] PCP - General 08/05/17 [place] [id number] [facility] [address] [place] [address] Surgeon Orthopedic Surgery 01/02/18 Deirdre Underwood OT [address] [facility] [address] [place] [address] Occupational Therapist Occupational Therapy 01/02/18 documented as of this encounter
== END 2024-09-06 12:57 | disposition home or self-care (01) ==
PROVIDERS: Visit Provider Urology
DX: N20.0 Calculus of kidney (principal)
CPT/HCPCS: 74176